=== PATIENT | male | born 1950 | race Caucasian/White ===

== ENCOUNTER 2021-01-18 07:06 | Outpatient (CLI) | payer OTHER, SELFPAY ==
--- NOTE | 2021-01-18 07:15 | USCV_ITS ---
Bienvenido Rees Age: 70 Gender: M : 1950 Exam Date: 01/18/2021 07:35 Ordering Phys: Vicki Nice MD ([email or web address]) Technologist: Theresa Jorgensen [place] [facility] [place]: CHEST PAIN BP: 132 / 78 HR: 64 Rhythm: Sinus Technical Quality: Adequate MEASUREMENTS (Male / Female) Normal Values 2D ECHO LV Diastolic Diameter PLAX 3.9 cm 4.2 - 5.9 / 3.9 - 5.3 cm LV Systolic Diameter PLAX 2.2 cm IVS Diastolic Thickness 1.5 cm 0.6 - 1.0 / 0.6 - 0.9 cm IVS Systolic Thickness 1.8 cm LVPW Diastolic Thickness 1.4 cm 0.6 - 1.0 / 0.6 - 0.9 cm LVPW Systolic Thickness 1.8 cm LVOT Diameter 2.0 cm LV Ejection Fraction 2D Teich 76.2 % LV Ejection Fraction MOD 2C 53.8 % LV Ejection Fraction 2C AL 59.2 % LA Diameter 3.6 cm LA Width 3.4 cm LA Height 5.1 cm RA Width 3.4 cm RA Height 4.6 cm Aorta at Sinotubular Diameter 2.9 cm M-MODE LV Diastolic Diameter MM 4.3 cm 4.2 - 5.9 / 3.9 - 5.3 cm LV Systolic Diameter MM 2.4 cm LV Ejection Fraction MM Teich 76.1 % IVS Diastolic Thickness MM 1.8 cm 0.6 - 1.0 / 0.6 - 0.9 cm IVS Systolic Thickness MM 1.7 cm LVPW Diastolic Thickness MM 1.6 cm 0.6 - 1.0 / 0.6 - 0.9 cm LVPW Systolic Thickness MM 1.4 cm Aortic Annulus Diameter 4.1 cm LA Ao Ratio MM 0.9 MV E Point Septal Separation 0.8 cm DOPPLER AV Peak Velocity 134.0 cm/s LVOT Peak Velocity 134.0 cm/s AV Area Cont Eq vti 2.9 cm squared AV Area Cont Eq pk 3.2 cm squared MV Area PHT 3.4 cm squared Mitral E to A Ratio 0.9 MV E' Velocity 51.8 cm/s Mitral E to MV E' Ratio 9.9 Mitral E to LV E' Lateral Ratio 8.0 Mitral E to LV E' Septal Ratio 13.3 TR Peak Velocity 285.3 cm/s TR Peak Gradient 32.6 mmHg Right Atrial Pressure 3.0 mmHg Pulmonary Artery Systolic Pressu 35.6 mmHg PV Peak Velocity 87.0 cm/s RV Acceleration Time 0.1 s RV Ejection Time 0.3 s RV AcT/ET 0.4 FINDINGS Left Ventricle Normal left ventricular size and systolic function, EF 66 %. No regional wall motion abnormalities. Mild left ventricular hypertrophy. Right Ventricle The right ventricle is normal in size and function. Right Atrium The right atrium is normal in size. Left Atrium Thickened interatrial septum Mitral Valve Trace mitral valve regurgitation. Aortic Valve Thickened aortic valve. Tricuspid Valve Trace tricuspid valve regurgitation. Pulmonic Valve Mild pulmonary valve regurgitation. Pericardium Normal pericardium without effusion. Aorta Normal ascending aorta dimension. CONCLUSIONS Normal left ventricular size and systolic function, EF 66 %. No regional wall motion abnormalities. Mild left ventricular hypertrophy. Thickened aortic and mitral valves. Trace of mitral and tricuspid regurgitation. Mild pulmonary valve regurgitation. Estimated pulmonary artery peak systolic pressure 36 mmHg. There is no pericardial effusion. There are no intracardiac masses. Dr Vicki Nice MD [facility] (Electronically Signed) Final Date: 19 January 2021 15:25 S
== END 2021-01-18 07:07 | disposition home or self-care (01) ==
LOC: US 07:07
PROVIDERS: PCP Internal Medicine; Visit Provider Internal Medicine Cardiovascular Disease
DX: R07.89 Other chest pain (principal); R06.02 Shortness of breath
CPT/HCPCS: 93306

== ENCOUNTER → 2022-03-18 13:25 | Outpatient (BNVA) | payer OTHER, SELFPAY | PROVIDERS: PCP Family Medicine; Visit Provider Internal Medicine Cardiovascular Disease | DX: R07.89 Other chest pain (principal); Z86.73 Personal history of transient ischemic attack (TIA), and cerebral infarction without residual deficits; Z86.39 Personal history of other endocrine, nutritional and metabolic disease; Z86.79 Personal history of other diseases of the circulatory system; R06.00 Dyspnea, unspecified; Z87.891 Personal history of nicotine dependence | CPT/HCPCS: 99213 ==

== ENCOUNTER → 2022-07-04 09:07 | Outpatient (BNVA) | payer OTHER, SELFPAY | PROVIDERS: PCP Family Medicine; Visit Provider Thoracic Surgery (Cardiothoracic Vascular Surgery) | DX: I71.4 Abdominal aortic aneurysm, without rupture (principal) | CPT/HCPCS: 99203 ==

== ENCOUNTER → 2022-09-30 10:47 | Outpatient (BNVA) | payer OTHER, SELFPAY | PROVIDERS: PCP Family Medicine; Visit Provider Internal Medicine Cardiovascular Disease | DX: R07.89 Other chest pain (principal); Z86.39 Personal history of other endocrine, nutritional and metabolic disease; Z86.73 Personal history of transient ischemic attack (TIA), and cerebral infarction without residual deficits; Z86.79 Personal history of other diseases of the circulatory system; I71.40 Abdominal aortic aneurysm, without rupture, unspecified; I71.21 Aneurysm of the ascending aorta, without rupture; Z87.891 Personal history of nicotine dependence | CPT/HCPCS: 99213 ==

== ENCOUNTER 2022-12-06 06:14 | Emergency (ER) | payer OTHER, SELFPAY ==
[2022-12-06 06:24] VITALS: BP 158/81; PULSE 109; RESP 18; TEMP 36.6; O2SAT 92; BMI 26.3
--- NOTE | 2022-12-06 06:55 | W.ED.GENADLT ---
HPI - General Adult General: Chief complaint: General Medical Stated complaint: Lump on chest area Time Seen by Provider: 12/06/22 06:44 Source: patient Mode of arrival: ambulatory History of Present Illness: 72-year-old male presents to the emergency room complaining of a sore area at the inferior aspect of his sternum. He has a palpable nodule there when he rubs it it becomes more tender. He has a history of abdominal aortic aneurysm that Dr. Mesa has been monitoring. No recent medication changes no chest trauma. No recent illness. He does chronically have shortness of breath and has known COPD states that minimal activity he becomes very short of breath that is becoming more and more of an issue lately for him. Severity: mild Relieving factors: none Exacerbating factors: none Associated symptoms: Reports dyspnea; Deny chest pain, confusion, cough, diaphoresis, decreased appetite, fevers/chills, headache(s), malaise, nausea, rash, palpitations, seizures, short of breath, syncope, vomiting or weakness Treatments prior to arrival: none Review of Systems Const: Denies: fever(s), chills, fatigue, malaise or diaphoresis Card: Denies: chest pain, palpitations or syncope Resp: Reports: dyspnea and wheezing; Denies: productive cough or non-productive cough GI: Denies: abdominal pain, nausea or vomiting Skin/Breast: Denies: rash Neuro: Denies: headache(s) or confusion PFS ED PFSH: Medical History Abdominal aortic aneurysm (AAA) Ascending aortic aneurysm Hearing impaired History of ataxia History of CVA (cerebrovascular accident) History of posttraumatic stress disorder (PTSD) Hx of essential hypertension Hx of mixed hyperlipidemia Hx of tinnitus Surgical History History of cataract extraction History of lumbar fusion Hx of cholecystectomy Hx of fusion of cervical spine Hx of hand surgery Family History Other Adopted Social History Smoking and tobacco status: former smoker Quit status (tobacco): has quit using tobacco Year quit tobacco: 2014 Former quit date comment: 2 1/2 PACK PER DAY X 50 YEARS Alcohol intake: former Last alcohol use date: 11/24/03 Lives independently: Yes Household members: spouse Marital status: Number of children: 7 service: Yes Pets and animals: Yes Pets & animals: dog(s) Physical Exam Const: COMMON NORMALS: no acute distress GENERAL APPEARANCE: cooperative and comfortable ORIENTATION/CONSCIOUSNESS: Yes awake, Yes oriented to person, Yes oriented to place and Yes oriented to time HENMT: COMMON NORMALS: normocephalic, atraumatic and hearing grossly normal bilaterally HEAD & SCALP: normocephalic and atraumatic Chest: OTHER: Area of concern patient refers to the base of the sternum xiphoid is prominent and palpable moderately tender no ecchymosis no crepitus Resp: COMMON NORMALS: normal respiratory effort, No retractions and No use of accessory muscles AUSCULTATION: rhonchi and wheezes Cardio: COMMON NORMALS: regular rate, regular rhythm and No murmurs present (Cardio) RATE: regular rate RHYTHM: regular rhythm GI: COMMON NORMALS: Soft to palpation and No hepatosplenomegaly present AUSCULTATION: Yes normoactive bowel sounds PALPATION: Yes Soft to palpation, No Tenderness to palpation present (GI), No Guarding due to palpation present (GI) and Yes No hepatosplenomegaly present Extremity: COMMON NORMALS: normal to inspection, capillary refill normal, no clubbing, cyanosis or edema, no calf tenderness and no pedal edema Neuro: SENSORIUM/ORIENTATION: Yes oriented to person, Yes oriented to place and Yes oriented to time Skin: COMMON NORMALS: no rashes or lesions noted GENERAL SKIN EXAM: no rashes or lesions noted Course Vital Signs: Vital signs: Vital Signs Temperature 98 F 12/06/22 06:24 Pulse Rate 80 12/06/22 07:10 Respiratory Rate 18 12/06/22 06:24 Blood Pressure 106/62 12/06/22 07:10 Pulse Oximetry 90 12/06/22 07:10 Oxygen Delivery Me thod 12/06/22 06:24 MDM - General Adult Medical Decision Making Reproducible pain in the area of concern is the xiphoid process. It is bowed ventrally likely due to his COPD. Discussed with the patient. Avoid massaging that area as that will likely increase the discomfort. Can use Tylenol or ibuprofen. His oxygen saturations are borderline and at times he will dip below 90 and remained there while at rest on room air. Offered to evaluate the patient for home supplemental oxygen he declined [facility] He was advised he can return at any time if he were to change his mind. He otherwise has no new respiratory symptoms. The had made a comment to the triage nurse that he had hypotension however his blood pressure is slightly hypertensive. He does have a known history of aortic aneurysm but is being monitored by Dr. Mesa he has no new symptoms suggestive of a dissection or worsening of his aneurysm at this time. Discharge Plan Discharge Patient Disposition: Home Clinical Impression: Xyphoidalgia Condition: Stable Prescriptions: No Action folic acid 1 mg tablet 1 mg PO DAILY pantoprazole 40 mg tablet,delayed release (DR/EC) 40 mg PO DAILY tamsulosin 0.4 mg capsule 0.4 mg PO DAILY buspirone 15 mg tablet 15 mg PO BID bupropion HCl [Wellbutrin SR] 200 mg tablet sustained-release 12 hr 200 mg PO BID duloxetine 20 mg capsule,delayed release(DR/EC) 20 mg PO BID ketoconazole 2 % cream 1 applic topical DAILY polyethylene glycol 3350 [Miralax] 17 gram/dose powder 17 g PO DAILY rosuvastatin 10 mg tablet 10 mg PO DAILY ipratropium-albuterol 20-100 mcg/actuation mist 1 puff inhalation QID Rx Instructions: space evenly during waking hours budesonide 90 mcg/actuation aerosol powdr breath activated 1 inh inhalation Q12H clopidogrel 75 mg tablet 75 mg PO DAILY finasteride 5 mg tablet 5 mg PO DAILY amlodipine 5 mg tablet 5 mg PO DAILY Qty: 90 3RF Discharge Orders: Discharge ED (Routine); Ordered 12/06/22 Ordered By: Sanya Donaldson Referrals: Umm Hyatt MD [Primary Care Provider] - Discharge Diet: Usual diet Discharge Activity: Increase activity as tolerated Patient Instructions: Opioid Safety, Pain Management Activity Restrictions/Additional Instructions: You are seen today for a prominent and tender xiphoid process. You can use ibuprofen or Tylenol. Avoid massaging the area as it can increase tenderness. Was also noted on exam your oxygen saturations are borderline. This is likely due to your COPD. Recommend that you follow-up with your doctor as soon as you are able to be evaluated for supplemental oxygen. 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
[2022-12-06 07:10] VITALS: BP 106/62; PULSE 80; O2SAT 90
== END 2022-12-06 07:10 | disposition home or self-care (01) ==
PROVIDERS: Emergency Provider Family Medicine; PCP Family Medicine
DX: M89.8X8 Other specified disorders of bone, other site (principal); Z86.73 Personal history of transient ischemic attack (TIA), and cerebral infarction without residual deficits; I10 Essential (primary) hypertension; E78.2 Mixed hyperlipidemia; Z87.891 Personal history of nicotine dependence
CPT/HCPCS: 99282

== ENCOUNTER 2023-01-09 06:58 | Outpatient (CLI) | payer OTHER, SELFPAY ==
--- NOTE | 2023-01-09 06:30 | CT_ITS ---
WS: [id number] CT ANGIOGRAPHY abdomen and pelvis. HISTORY: AAA TECHNIQUE: CT angiogram is performed during IV injection. Reformation images reviewed. All CT scans a Buzzwire Reclog use at least one of these dose optimization techniques: automated exposure contro l; mA and/or kV adjustment per patient size (includes targeted exams where dose is matched to clinica l indication); or iterative reconstruction. CONTRAST: Omnipaque 350; 100 mL IV. DLP: 626.45 mGy.cm COMPARISON: CT 03/18/2018 noncontrast. Hyperexpanded lung bases from emphysema. No pleural effusion. Heart is normal size. Small hiatal ky ia. Abdominal aorta: Maximum transverse diameter infrarenal aorta is 3.1 cm which is several centimeters below the renal arteries. Short segment aneurysmal dilatation but there is a large plaque ulceration. Contrast enhancement is lobulated extending into the LEFT lateral aortic thrombus at the level of th e aneurysm. Ulceration measures 1.0 x 1.3 cm. There is additional scattered plaque and intimal thicke dulce throughout the aorta. Small amount of calcified plaque in the celiac axis and SMA but no high-grade stenosis. Renal arterie s are both patent. MITCHELL is normal. 50% stenosis origin LEFT common iliac artery. Mild aneurysmal dilatation of the distal LEFT common il iac artery. Diameter is 1.6 cm with a small plaque ulceration versus a short focal dissection. There is additional calcified plaque in the bilateral common and external iliac arteries but no high-grade stenosis. Tricuspid regurgitation into hepatic veins. Early enhancement of the liver, spleen, pancreas and adre nal glands is negative. Gallbladder has been removed. No common bile duct dilatation. Mild cortical a trophy of each kidney. No ischemic changes. There are a few small cortical hypodensities which are to o small to characterize. No GI tract obstruction. Sigmoid diverticulosis without diverticulitis. No a denopathy or ascites. CT/CT angio abdomen pelvis [id number] IMPRESSION: 1. Small infrarenal abdominal aortic aneurysm with a maximum transverse diamet er of 3.1 cm. Contained within the short segment aneurysm is an ulceration letty uring 1.0 x 1.3 cm. 2. Additional focal aneurysm LEFT common iliac artery measures 1.6 cm with a s mall ulcerated plaque versus dissection. 3. Prior cholecystectomy.
[2023-01-09] MEDS: iohexol 350 mg/mL 500 mL Btl (per mL) IV (07:10)
[2023-01-09 07:32] LABS: Blood Urea Nitrogen 8 mg/dL (8-23)
== END 2023-01-09 06:59 | disposition home or self-care (01) ==
LOC: RAD 06:59
PROVIDERS: PCP Family Medicine; Visit Provider Thoracic Surgery (Cardiothoracic Vascular Surgery)
DX: I71.43 Infrarenal abdominal aortic aneurysm, without rupture; I72.3 Aneurysm of iliac artery; Z90.49 Acquired absence of other specified parts of digestive tract
CPT/HCPCS: 74174; 82565; 84520; Q9967

== ENCOUNTER → 2023-01-30 08:47 | Outpatient (BNVA) | payer OTHER, SELFPAY | PROVIDERS: PCP Family Medicine; Visit Provider Thoracic Surgery (Cardiothoracic Vascular Surgery) | DX: I71.40 Abdominal aortic aneurysm, without rupture, unspecified (principal); I71.21 Aneurysm of the ascending aorta, without rupture; Z87.891 Personal history of nicotine dependence | CPT/HCPCS: 99213 ==

== ENCOUNTER → 2023-04-08 10:03 | Outpatient (BNVA) | payer OTHER, SELFPAY | PROVIDERS: PCP Family Medicine; Visit Provider Internal Medicine Cardiovascular Disease | DX: E78.2 Mixed hyperlipidemia (principal); Z86.73 Personal history of transient ischemic attack (TIA), and cerebral infarction without residual deficits; I71.21 Aneurysm of the ascending aorta, without rupture; I71.40 Abdominal aortic aneurysm, without rupture, unspecified; I10 Essential (primary) hypertension; Z87.891 Personal history of nicotine dependence | CPT/HCPCS: 99214 ==

== ENCOUNTER 2023-05-19 23:09 | Emergency (ER) | payer OTHER, SELFPAY ==
[2023-05-19 23:21] VITALS: BP 133/73; PULSE 70; RESP 16; TEMP 36.6; O2SAT 94; BMI 25.7
--- NOTE | 2023-05-19 23:27 | ED_ITS ---
HPI - Extremity Problem General: Chief complaint: Extremity Injury, Lower Stated complaint: right leg pain Time Seen by Provider: 05/19/23 23:24 History of Present Illness: 72-year-old male patient comes in today for concerns of pain to the posterior right knee. Patient reports pains been off and on for the last 2 months but worse over the last day or so. Patient also reports increased size of blood vessels to the lower legs. Patient appears nontoxic. No significant swelling is noted to the extremity. Patient has a history of a abdominal aortic aneurysm, COPD, BPH, depression, GERD, Parkinson's, hypertension. Associated symptoms: Deny chest pain or rash Review of Systems General: Reports: 10 or more systems reviewed and unremarkable except in HPI and below Card: Denies: chest pain Resp: Denies: dyspnea GI: Denies: nausea, vomiting or diarrhea Musc: Reports: extremity pain (Right knee and lower leg); Denies: back pain Skin/Breast: Denies: rash PFSH ED PFSH: Medical History Abdominal aortic aneurysm (AAA) Ascending aortic aneurysm Hearing impaired History of ataxia History of CVA (cerebrovascular accident) History of posttraumatic stress disorder (PTSD) Hx of essential hypertension Hx of mixed hyperlipidemia Hx of tinnitus Surgical History History of cataract extraction History of lumbar fusion Hx of cholecystectomy Hx of fusion of cervical spine Hx of hand surgery Family History Other Adopted Social History Smoking and tobacco status: former smoker Quit status (tobacco): has quit using tobacco Year quit tobacco: 2014 Former quit date comment: 2 1/2 PACK PER DAY X 50 YEARS Alcohol intake: former Last alcohol use date: 11/24/03 Substance/Drug Use: current Lives independently: Yes Household members: spouse Marital status: Number of children: 7 service: Yes Pets and animals: Yes Pets & animals: dog(s) Physical Exam Const: COMMON NORMALS: alert HENMT: COMMON NORMALS: normocephalic HEAD & SCALP: normocephalic Neck/C-Spine: COMMON NORMALS: full ROM Resp: COMMON NORMALS: normal respiratory effort Cardio: COMMON NORMALS: regular rate RATE: regular rate Extremity: RIGHT LOWER EXTREMITY: Yes knee joint (Posterior knee discomfort) and Yes lower leg (Increased venous size) Neuro: SENSORIUM/ORIENTATION: Yes alert Skin: COMMON NORMALS: turgor normal GENERAL SKIN EXAM: turgor normal Course Vital Signs: Vital signs: Vital Signs Temperature 97.8 F 05/19/23 23:21 Pulse Rate 75 05/19/23 23:32 Respiratory Rate 16 05/19/23 23:32 Blood Pressure 120/76 05/19/23 23:32 Pulse Oximetry 92 05/19/23 23:32 Oxygen Delivery Me thod Room Air 05/19/23 23:21 MDM - Extremity (Nontraumatic) Medical Decision Making Patient came in tonight for concerns of posterior right knee pain. On exam there was no significant swelling but some tenderness in the posterior aspect of the knee. Vital signs were normal. Differential diagnosis includes not limited to DVT, Giron's cyst, osteoarthritis of the knee, meniscal injury. X-ray noted tricompartmental arthritis of the knee worse on the medial aspect. Venous duplex noted no DVT or signs of Giron's cyst. Patient left prior to results of x-ray and ultrasound without notifying staff. I called the patient's cell phone number that was left in the record and left a message with the results of the x- ray and ultrasound with recommendations to follow-up with primary care or contact the ER for further questions. Patient was stable to leave. No signs of severe distress or injury was noted. Lab Data Radiology Impressions Knee X-Ray 05/19/23 23:32 IMPRESSION: 1. Scattered vascular calcifications. 2. Mild tricompartmental osteoarthritis of the knee, greatest in the medial compartment. Venous Duplex 05/19/23 23:32 IMPRESSION: No evidence of deep vein thrombosis. Negative for Giron's cyst. Discharge Plan Discharge Condition: Stable Prescriptions: No Action folic acid 1 mg tablet 1 mg PO DAILY pantoprazole 40 mg tablet,delayed release (DR/EC) 40 mg PO DAILY tamsulosin 0.4 mg capsule 0.4 mg PO DAILY buspirone 15 mg tablet 15 mg PO BID bupropion HCl [Wellbutrin SR] 200 mg tablet sustained-release 12 hr 200 mg PO BID duloxetine 20 mg capsule,delayed release(DR/EC) 20 mg PO BID ketoconazole 2 % cream 1 applic topical DAILY rosuvastatin 10 mg tablet 10 mg PO DAILY ipratropium-albuterol 20-100 mcg/actuation mist 1 puff inhalation QID Rx Instructions: space evenly during waking hours budesonide 90 mcg/actuation aerosol powdr breath activated 1 inh inhalation Q12H clopidogrel 75 mg tablet 75 mg PO DAILY finasteride 5 mg tablet 5 mg PO DAILY amlodipine 5 mg tablet 5 mg PO DAILY Qty: 90 3RF mirtazapine [Remeron] 15 mg tablet 15 mg PO DAILY carbidopa-levodopa 25-100 mg tablet 1 tab PO TID Referrals: Umm Hyatt MD [Primary Care Provider] - Coding Level of Care Code ED 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
[2023-05-19 23:32] VITALS: BP 120/76; PULSE 75; RESP 16; O2SAT 92
--- NOTE | 2023-05-19 23:32 | XRR_ITS ---
PROCEDURE INFORMATION: Exam: XR Right Knee Exam date and time: 05/19/2023 11:36 PM Age: 72 years old Clinical indication: Pain; Knee; Right TECHNIQUE: Imaging protocol: Radiologic exam of the right knee. Views: 3 views. COMPARISON: No relevant prior studies available. FINDINGS: Bones/joints: Mild tricompartmental osteoarthritis of the knee, greatest in the medial compartment. Soft tissues: Normal. Vasculature: Scattered vascular calcifications. XR/XR knee RT 3V* [id number] IMPRESSION: 1. Scattered vascular calcifications. 2. Mild tricompartmental osteoarthritis of the knee, greatest in the medial compartment.
--- NOTE | 2023-05-19 23:32 | USR_ITS ---
PROCEDURE INFORMATION: Exam: US Duplex Right Lower Extremity Veins, Limited Exam date and time: 05/19/2023 11:47 PM Age: 72 years old Clinical indication: Pain; Leg, lower; Right; Additional info: Posterior knee pain, concern for dvt vs giron's cyst TECHNIQUE: Imaging protocol: Real-time duplex ultrasound of the right extremity with 2-D jett scale, color Doppler flow and spectral waveform analysis including responses to compression and other maneuvers (when performed) with image documentation. Limited exam was focused on the right lower extremity veins. COMPARISON: CR (LOW EXM, ) 05/19/2023 11:36 PM FINDINGS: Right deep veins: Unremarkable. The common femoral, femoral, proximal profunda femoral and popliteal veins are patent without thrombus. Normal Doppler waveforms. Normal compressibility and/or augmentation response. Right superficial veins: Unremarkable. Saphenofemoral junction is patent without thrombus. Soft tissues: Unremarkable. US/[place] [id number] IMPRESSION: No evidence of deep vein thrombosis. Negative for Giron's cyst.
--- NOTE | 2023-05-20 00:20 | PC.NURSE ---
Patient stated he wanted pulse ox off or he would leave ama. He said, the beeping is driving him crazy. NT asked if he would like to wear oxygen and he stated no, he did not want to get spoiled with O2.
== END 2023-05-20 01:17 | disposition left against medical advice (07) ==
PROVIDERS: Emergency Provider Nurse Practitioner Family; PCP Family Medicine
DX: M79.604 Pain in right leg (principal); Z79.02 Long term (current) use of antithrombotics/antiplatelets; Z86.73 Personal history of transient ischemic attack (TIA), and cerebral infarction without residual deficits; I10 Essential (primary) hypertension; E78.2 Mixed hyperlipidemia; Z87.891 Personal history of nicotine dependence
CPT/HCPCS: 73562; 93971; 99284

== ENCOUNTER → 2024-12-23 14:56 | Outpatient (BNVA) | payer OTHER, SELFPAY | PROVIDERS: PCP Family Medicine; Visit Provider Internal Medicine | DX: I48.91 Unspecified atrial fibrillation (principal); R07.89 Other chest pain; Z96.649 Presence of unspecified artificial hip joint; Z86.73 Personal history of transient ischemic attack (TIA), and cerebral infarction without residual deficits; E78.5 Hyperlipidemia, unspecified; I10 Essential (primary) hypertension | CPT/HCPCS: 99214 ==

== ENCOUNTER 2025-01-06 08:53 | Outpatient (CLI) | payer OTHER, SELFPAY ==
[2025-01-06 09:11] VITALS: BMI 29.8
--- NOTE | 2025-01-06 09:13 | ECG_ITS ---
[facility] Test Date: 2025-01-06 Pat Name: Bienvenido Rees Department: Room: Gender: Male Back Joiner: : 1950 Requested By: Dakota Hassan Order Number: [id number] Clive MD: Vicki Nice M.D. Interpretive Statements Lung unchanged pre/post procedure; Intraprocedure shortess of breath; Symptoms resoled by discharge PROCEDURE: At the baseline, the EKG revealed normal sinus rhythm with some nonspecific T wave changes. The baseline heart was 75 bpm with a blood pressue of 112/69 mm of Hg Lexiscan was infused over a period of 20 seconds. A total of 0.4 milligrams of Lexiscan was infused. The stress phase was continued for a total of 5 minutes. Heart rate at the end of the stress phase was 88 bpm with a blood pressure 114/66 mm of Hg. The EKG at the peak infusion revealed no significant changes. Sestamibi was injected 20 seconds after the Lexiscan infusion. Heart rate at the end of the recovery phase was 91 bpm with a blood pressure of 107/66 mm of Hg. CONCLUSION: 1. No significant EKG changes with the LexiScan infusion 2. No LexiScan induced chest pain or cardiac arrhythmia 3. Normal blood pressure and heart rate response 4. Sestamibi/sestamibi perfusion scan pending; see separate report. Electronically Signed On 01-10-2025 06:33:41 PROPERTY MANAGEMENT ACCOUNTANT by Vicki Nice M.D. [email or web address]
--- NOTE | 2025-01-06 09:13 | NMCV_ITS ---
NM abhijeet perf SPECT r/s* [id number] Bienvenido Rees Age: 74 Gender: M : 1950 Exam Date: 01/06/2025 09:56 Ordering Phys: Dakota Hassan M.D ([email or web address]) Technologist: STEPH Ji Exam Location: [facility] Indications: cp STRESS TEST Please [facility] for [facility] IMAGE PROTOCOL Rest/Stress 1 Lexiscan Day Radiopharmaceutical Dose (mCi) Administration Site Administered by Rest: Tc-99m 10.6 IV Wendie Oliver, GRINDER SET UP OPERATOR THREAD TOOL Sestamibi Stress:Tc-99m 32.5 IV Wendie Brargle, GRINDER SET UP OPERATOR THREAD TOOL Sestamibi Rest: 06-Jan-2025 60 Discovery 630 Stress: 06-Jan-2025 30 Discovery 630 0.4mg Lexiscan. Images obtained in supine and prone position. SPECT RESULTS Technical Quality: Good Raw Data Analysis: Normal Image Corrections: No attenuation or motion correction applied Summed Stress Score: 7 Summed Rest Score: 5 Summed Difference Score: 3 PERFUSION FINDINGS Moderate area of minimal to moderately decreased asymmetric tracer uptake, involving the basal, mid and apical inferior; mid inferolateral and apical lateral segments some reversibility was noted in the basal and mid inferior and apical lateral segments with the supine imaging. However with the prone imaging, no significant Perfusion abnormalities were noted. FUNCTIONAL RESULTS (calculated via Gated SPECT) Stress Image LV EF (%): 66 Stress EDV (mL):83 TID: 0.89 Stress ESV (mL):28 FUNCTIONAL FINDINGS: Segmental wall motion analysis revealing no gross wall motion abnormalities IMPRESSIONS 1. Myocardial perfusion imaging revealing moderate area of minimal to moderately decreased tracer uptake involving the inferior, inferolateral and apical lateral regions with some reversibility suggesting myocardial scarring with ischemia in the distribution of the right coronary artery/circumflex artery. However because of the inconsistency with the prone imaging, this could be artifactual. Clinical correlation is recommended 2. Normal LV ejection fraction of 66%. 3. LV wall motion analysis revealing no gross wall motion abnormalities. 4. Normal LV volume Compared to the study from 08/11/2019, slightly more perfusion abnormalities are noted. Dr Vicki Nice MD [facility] (Electronically Signed) Final Date: 06 January 2025 13:36 S
[2025-01-06] MEDS: regadenoson 0.4 Mg/5 ml Syringe IVP (10:42)
[2025-01-06 10:54] VITALS: BP 107/66; PULSE 91
== END 2025-01-06 08:54 | disposition home or self-care (01) ==
LOC: CDL 08:54
PROVIDERS: PCP Family Medicine; Visit Provider Internal Medicine
DX: R07.9 Chest pain, unspecified (principal); R06.02 Shortness of breath; R93.1 Abnormal findings on diagnostic imaging of heart and coronary circulation
CPT/HCPCS: 36415; 78452; 93017; 96374; A9500; J2785

== ENCOUNTER 2025-04-15 14:18 | Emergency (ER) | payer OTHER, SELFPAY ==
[2025-04-15 14:29] VITALS: BP 120/72; PULSE 72; RESP 18; TEMP 36.7; O2SAT 90; BMI 30.4
--- NOTE | 2025-04-15 14:54 | W.ED.MALEGU ---
HPI - Male Genitourinary General: Chief complaint: Urogenital-Male Stated complaint: blood in urine Time Seen by Provider: 04/15/25 14:50 History of Present Illness: 74-year-old man with a history of atrial fibrillation with chronic anticoagulation on Xarelto, AAA, chronic hypoxemic respiratory failure on 3 L nasal cannula at all times, hypertension, hyperlipidemia, history of a stroke and PTSD who presents to the emergency room with hematuria and some mild confusion. says he seemed a little bit more confused and has been having blood in his urine for couple days now. More weak with difficulty standing. He answers all questions appropriately whenever I talk to him. No known fevers. No abdominal pain. No vomiting. Related Data Home Medications ?Medication ?Instructions ?Recorded ?Confirmed folic acid 1 mg tablet 1 mg PO DAILY 05/17/20 04/15/25 pantoprazole 40 mg tablet,delayed 40 mg PO DAILY 05/17/20 04/15/25 release tamsulosin 0.4 mg capsule 0.4 mg PO QPM 05/17/20 04/15/25 buspirone 15 mg tablet 15 mg PO BID 03/28/21 04/15/25 finasteride 5 mg tablet 5 mg PO DAILY 03/28/21 04/15/25 ketoconazole 2 % topical cream 1 applic topical DAILY 03/28/21 04/15/25 mirtazapine 15 mg tablet (Remeron) 15 mg PO BEDTIME 04/08/23 04/15/25 aspirin 81 mg tablet 81 mg PO DAILY 04/15/25 04/15/25 budesonide 160 mcg-glycopyr 9 2 inh inhalation BID 04/15/25 04/15/25 mcg-formot 4.8 mcg/actuation HFA inhaler (Breztri Aerosphere) bupropion HCl 150 mg 24 hr tablet, 150 mg PO QAM 04/15/25 04/15/25 extended release clopidogrel 75 mg tablet 75 mg PO DAILY 04/15/25 04/15/25 donepezil 10 mg tablet 5 mg PO DAILY 04/15/25 04/15/25 duloxetine 60 mg capsule,delayed 60 mg PO DAILY 04/15/25 04/15/25 release sprinkle fluticasone propionate 50 2 spray intranasal DAILY 04/15/25 04/15/25 mcg/actuation nasal spray,suspension propranolol 60 mg capsule,24 60 mg PO DAILY 04/15/25 04/15/25 hr,extended release rosuvastatin 40 mg tablet 40 mg PO QPM 04/15/25 04/15/25 Previous Rx's ?Medication ?Instructions ?Recorded amlodipine 5 mg tablet 5 mg PO DAILY #90 tabs 09/25/21 nitroglycerin 0.4 mg sublingual 0.4 mg sublingual Q5M PRN chest 12/23/24 tablet pain #25 tabs rivaroxaban 20 mg tablet (Xarelto) 20 mg PO DAILY #90 tabs 12/23/24 cefdinir 300 mg capsule 300 mg PO BID 7 days #14 caps 04/15/25 Allergies Allergy/AdvReac Type Severity Reaction Status Date / Time No Known Allergies Allergy Verified 12/23/24 15:15 Review of Systems Narrative: Constitutional symptoms: Negative except as documented in HPI. Skin symptoms: Negative except as documented in HPI. Eye symptoms: Negative except as documented in HPI. ENMT symptoms: Negative except as documented in HPI. Respiratory symptoms: Negative except as documented in HPI. Cardiovascular symptoms: Negative except as documented in HPI. Gastrointestinal symptoms: Negative except as documented in HPI. Genitourinary symptoms: Negative except as documented in HPI. Musculoskeletal symptoms: Negative except as documented in HPI. Neurologic symptoms: Negative except as documented in HPI. Psychiatric symptoms: Negative except as documented in HPI. Endocrine symptoms: Negative except as documented in HPI. PFSH ED PFSH: Medical History (Updated 04/15/25 @ 18:04 by Deidre Ochoa MD) A-fib Ascending aortic aneurysm Abdominal aortic aneurysm (AAA) Hx of essential hypertension Hx of mixed hyperlipidemia History of CVA (cerebrovascular accident) History of ataxia History of posttraumatic stress disorder (PTSD) Hx of tinnitus Hearing impaired Surgical History History of lumbar fusion Hx of cholecystectomy Hx of fusion of cervical spine History of cataract extraction Hx of hand surgery Family History Other Adopted Social History Smoking and tobacco/nicotine status: former use of tobacco/nicotine Quit status (tobacco/nicotine): has quit using Year quit tobacco: 2014 Former quit date comment: 2 1/2 PACK PER DAY X 50 YEARS Alcohol intake: former Substance/Drug Use: current Lives independently: Yes Household members: spouse Marital status: Number of children: 7 service: Yes Pets and animals: Yes Pets & animals: dog(s) Physical Exam Narrative: EXAM NARRATIVE: General: Alert, no acute distress. Skin: Warm, dry. Head: Normocephalic, atraumatic. Neck: Supple, trachea midline. Eye: Extraocular movements are intact. Ears, nose, mouth and throat: mucosa moist. Cardiovascular: Regular, Normal peripheral perfusion. Respiratory: Lungs are clear to auscultation, respirations are non-labored, breath sounds are equal, Symmetrical chest wall expansion. Gastrointestinal: Soft, Nontender, Non distended Musculoskeletal: Normal ROM, no deformity. Neurological: Alert and oriented, No focal neurological deficit observed. Psychiatric: Cooperative, appropriate mood & affect. Course Vital Signs: Vital signs: Vital Signs Temperature 98.0 F 04/15/25 14:29 Pulse Rate 72 04/15/25 14:29 Respiratory Rate 18 04/15/25 14:29 Blood Pressure 120/72 04/15/25 14:29 Pulse Oximetry 90 04/15/25 14:29 Oxygen Delivery Me thod Nasal Cannula 04/15/25 14:29 Oxygen Flow Rate 3 04/15/25 14:29 MDM - Male Medical Decision Making Medical decision making: Differential diagnosis for complaint of hematuria including but not limited to and based on the above HPI, review of systems and physical exam: UTI / hemorrhagic cystitis, pyelonephritis, kidney stones, bladder cancer Orders placed to evaluate differential diagnosis based on the above differential, HPI and physical exam Lab Review: Laboratory results were reviewed and interpreted by myself the emergency room physician. No leukocytosis. No anemia. No renal failure. Urine does have blood and white cells with 2+ bacteria so this is likely secondary to urinary tract infection. I reviewed the patient's medical record. Reexamination: Patient remained stable. No increased work of breathing. No altered mental status. No focal motor deficits. Stable on his home 3 L nasal cannula. Assessment and plan: Urinary tract infection Dehydration Mild metabolic encephalopathy Hematuria ?Rocephin and 500 mL normal saline bolus in the emergency room. - Discharged home - Discussed plan with patient. Answered any questions. - Evaluation and treatment of this problem were appropriate in the emergency setting. Lab Data 04/15/25 15:02 04/15/25 15:02 Laboratory Results WBC 9.34 10^3/uL (3.29-11.43) 04/15/25 15:02 RBC 3.98 10^6/uL (3.85-5.65) 04/15/25 15:02 Hgb 11.50 g/dL (11.27-16.99) 04/15/25 15:02 Hct 37.0 % (37-53) 04/15/25 15:02 MCV 93.0 fl (82-101) 04/15/25 15:02 MCH 28.9 pg (27-33) 04/15/25 15:02 MCHC 31.1 g/dL (30-55) 04/15/25 15:02 RDW 13.0 % (12.1-15.1) 04/15/25 15:02 Plt Count 197 10^3/cmm (157-399) 04/15/25 15:02 MPV 9.2 fL (7.4-10.4) 04/15/25 15:02 Neut % (Auto) 71.3 % 04/15/25 15:02 Lymph % (Auto) 16.7 % 04/15/25 15:02 [place] % (Auto) 8.9 % 04/15/25 15:02 Eos % (Auto) 2.5 % 04/15/25 15:02 Baso % (Auto) 0.3 % 04/15/25 15:02 Neut # (Auto) 6.66 10^3/uL (1.8-7.7) 04/15/25 15:02 Lymph # (Auto) 1.6 10^3/uL (0.8-4.8) 04/15/25 15:02 [place] # (Auto) 0.8 10^3/uL (0.2-0.9) 04/15/25 15:02 Eos # (Auto) 0.2 10^3/uL (0.0-0.8) 04/15/25 15:02 Baso # (Auto) 0.0 10^3/uL (0.0-0.1) 04/15/25 15:02 Nucleated RBC % (auto) 0 % 04/15/25 15:02 Nucleated RBCs # 0.0 /100WBC 04/15/25 15:02 Sodium 140 mmol/L (136-145) 04/15/25 15:02 Potassium 3.9 mmol/L (3.5-5.1) 04/15/25 15:02 Chloride 104 mmol/L (98-107) 04/15/25 15:02 Carbon Dioxide 26 mmol/L (22-29) 04/15/25 15:02 Anion Gap 13.9 (5-19) 04/15/25 15:02 BUN 15 mg/dL (8-23) 04/15/25 15:02 Creatinine 0.8 mg/dL (0.7-1.2) 04/15/25 15:02 GFR Calculation Not Reportable 04/15/25 15:02 Glucose 110 mg/dL (65-115) 04/15/25 15:02 Calculated Osmolality 291 mOsm/kg (285-295) 04/15/25 15:02 Lactic Acid 0.8 mmol/L (0.5-2.2) 04/15/25 15:02 Calcium 8.7 mg/dL (8.5-10.5) 04/15/25 15:02 Total Bilirubin 0.4 mg/dL (0.15-1.2) 04/15/25 15:02 AST 11 U/L (0-40) 04/15/25 15:02 ALT 13 U/L (0-41) 04/15/25 15:02 Alkaline Phosphatase 86 U/L (40-130) 04/15/25 15:02 Total Protein 6.1 g/dL (6.6-8.7) L 04/15/25 15:02 Albumin 3.4 g/dL (3.5-5.2) L 04/15/25 15:02 Globulin 2.7 g/dL (1.3-4.6) 04/15/25 15:02 Urine Color Red (Yellow) A 04/15/25 17:11 Urine Appearance Cloudy (CLEAR) A 04/15/25 17:11 Urine pH TNP 04/15/25 17:11 Ur Specific [place] TNP 04/15/25 17:11 Urine Protein TNP 04/15/25 17:11 Urine Glucose (UA) TNP 04/15/25 17:11 Urine Ketones TNP 04/15/25 17:11 Urine Blood TNP 04/15/25 17:11 Urine Nitrate TNP 04/15/25 17:11 Urine Bilirubin TNP 04/15/25 17:11 Urine Urobilinogen TNP 04/15/25 17:11 Ur Leukocyte Esterase TNP 04/15/25 17:11 Urine RBC 50-80 /hpf (0-2) H 04/15/25 17:11 Urine WBC 5-10 /hpf (0-5) H 04/15/25 17:11 Ur Squamous Epith Cells 0-4 /hpf (0-5) H 04/15/25 17:11 Amorphous Sediment Not Reportable 04/15/25 17:11 Urine Bacteria 2+ /hpf (NONE) H 04/15/25 17:11 Hyaline Casts 0-4 /lpf H 04/15/25 17:11 Urine Mucus Trace /hpf 04/15/25 17:11 No radiology studies performed this visit Discharge Plan Discharge Patient Disposition: Home Clinical Impression: Urinary tract infection, Hematuria, Dehydration Condition: Stable Prescriptions: New cefdinir 300 mg capsule 300 mg PO BID 7 Days Qty: 14 0RF No Action folic acid 1 mg tablet 1 mg PO DAILY pantoprazole 40 mg tablet,delayed release (DR/EC) 40 mg PO DAILY tamsulosin 0.4 mg capsule 0.4 mg PO QPM buspirone 15 mg tablet 15 mg PO BID ketoconazole 2 % cream 1 applic topical DAILY finasteride 5 mg tablet 5 mg PO DAILY amlodipine 5 mg tablet 5 mg PO DAILY Qty: 90 3RF mirtazapine [Remeron] 15 mg tablet 15 mg PO BEDTIME Xarelto 20 mg tablet 20 mg PO DAILY Qty: 90 3RF Rx Instructions: must administer with evening meal nitroglycerin 0.4 mg tablet, sublingual 0.4 mg sublingual Q5M PRN (Reason: chest pain) Qty: 25 2RF Rx Instructions: do not exceed 3 doses per episode donepezil 10 mg Tablet 5 mg PO DAILY propranolol 60 mg Capsule,Extended Release 24 Hr 60 mg PO DAILY clopidogrel 75 mg tablet 75 mg PO DAILY aspirin [Low-Dose Aspirin] 81 mg Tablet 81 mg PO DAILY fluticasone propionate [Flonase] 50 mcg/actuation [place],Suspension 2 spray INTRANASAL DAILY Rx Instructions: administer into each nostril rosuvastatin 40 mg Tablet 40 mg PO QPM bupropion HCl 150 mg Tablet Extended Release 24 Hr 150 mg PO QAM duloxetine 60 mg Capsule, Delayed Rel Sprinkle 60 mg PO DAILY Brycetri Aerosphere 160-9-4.8 mcg/actuation Hfa Aerosol Inhaler 2 inh INHALATION BID Discharge Orders: Discharge ED (Routine); Ordered 04/15/25 Ordered By: Deidre Ochoa Referrals: Umm Hyatt MD [Primary Care Provider, Family Practice] Discharge Diet: Usual diet Discharge Activity: Increase activity as tolerated Patient Instructions: Hematuria (ED), Urinary Tract Infection in Older Adults (ED), Opioid Safety, Pain Management Activity Restrictions/Additional Instructions: Thank you for choosing [facility] for your healthcare needs today. You have been screened and evaluated and felt safe for discharge. Health conditions do change or evolve sometimes and as such it is important that you follow up with your Primary Doctor to be re checked, 3-5 days is a general good time frame for follow up. You are always welcome to return to the ED for re assessment if your symptoms are worsening or you have new concerns Print Language: Singaporean Coding Level of Care Code ED Risk Control Consultant for Yogesh Anand
[2025-04-15 15:12] LABS: Basophils % 0.3 %; Eosinophils # 0.2 10^3/uL (0.0-0.8); Eosinophils % 2.5 %; Lymphocytes # 1.6 10^3/uL (0.8-4.8); Lymphocytes % 16.7 %; Mean Corpuscular HGB Conc 31.1 g/dL (30-55); Mean Corpuscular Hemoglobin 28.9 pg (27-33); Mean Platelet Volume 9.2 fL (7.4-10.4); Monocytes # 0.8 10^3/uL (0.2-0.9); Monocytes % 8.9 %; Neutrophils # 6.66 10^3/uL (1.8-7.7); Neutrophils % 71.3 %; Nucleated Red Blood Cells % 0 %; Platelet Count 197 10^3/cmm (157-399); Red Blood Count 3.98 10^6/uL (3.85-5.65); White Blood Count 9.34 10^3/uL (3.29-11.43)
[2025-04-15 15:25] LABS: Alanine Aminotransferase 13 U/L (0-41); Albumin Level 3.4 g/dL (3.5-5.2); Alkaline Phosphatase 86 U/L (40-130); Anion Gap 13.9 (5-19); Aspartate Amino Transferase 11 U/L (0-40); Blood Urea Nitrogen 15 mg/dL (8-23); Calcium 8.7 mg/dL (8.5-10.5); Carbon Dioxide 26 mmol/L (22-29); Chloride 104 mmol/L (98-107); Creatinine Clr Calc Pharmacy 97.0901; Globulin 2.7 g/dL (1.3-4.6); Glucose 110 mg/dL (65-115); Osmolality Calculated 291 mOsm/kg (285-295); Potassium 3.9 mmol/L (3.5-5.1); Sodium 140 mmol/L (136-145); Total Bilirubin 0.4 mg/dL (0.15-1.2); Total Protein 6.1 g/dL (6.6-8.7)
[2025-04-15 15:26] LABS: Lactic Sepsis W/Reflex 0.8 mmol/L (0.5-2.2)
[2025-04-15 17:47] LABS: Urine Appearance Cloudy (CLEAR); Urine Color Red (Yellow)
[2025-04-15 17:48] LABS: Add Urine Culture? Yes; Bacteria Urine 2+ /hpf; Hyaline Casts Urine 0-4 /lpf; Mucus Urine TRACE /hpf; RBC Urine 50-80 /hpf (0-2); Squamous Epithelial Cell Urine 0-4 /hpf (0-5); UA Manual Slide Review YES; UA Slide Review UA Slide Review Perf
[2025-04-15] MEDS: cefTRIAXone 1,000 mg SDV 1000 MG IVP (18:09)
[2025-04-15] MEDS: sodium chloride 0.9% 500 ML 999 ML IV (18:09)
[2025-04-15 18:26] VITALS: BP 125/65; PULSE 69; O2SAT 93
== END 2025-04-15 18:27 | disposition home or self-care (01) ==
PROVIDERS: Emergency Provider Emergency Medicine; PCP Family Medicine
DX: N39.0 Urinary tract infection, site not specified (principal); R31.9 Hematuria, unspecified; Z79.01 Long term (current) use of anticoagulants; I48.91 Unspecified atrial fibrillation; J96.11 Chronic respiratory failure with hypoxia; E86.0 Dehydration; E78.2 Mixed hyperlipidemia; I10 Essential (primary) hypertension; Z86.73 Personal history of transient ischemic attack (TIA), and cerebral infarction without residual deficits; Z79.02 Long term (current) use of antithrombotics/antiplatelets; Z79.899 Other long term (current) drug therapy; Z79.82 Long term (current) use of aspirin; Z87.891 Personal history of nicotine dependence; Z99.81 Dependence on supplemental oxygen
CPT/HCPCS: 36415; 80053; 81001; 83605; 85025; 87040; 87077; 87086; 87186; 96374; 99284; J0696; J7040

== ENCOUNTER → 2025-07-28 13:00 | Outpatient (BNVA) | payer OTHER, SELFPAY | PROVIDERS: PCP Family Medicine; Visit Provider Internal Medicine | DX: I48.91 Unspecified atrial fibrillation (principal); Z79.01 Long term (current) use of anticoagulants; Z79.82 Long term (current) use of aspirin; R07.9 Chest pain, unspecified; Z96.649 Presence of unspecified artificial hip joint; Z86.39 Personal history of other endocrine, nutritional and metabolic disease; Z86.73 Personal history of transient ischemic attack (TIA), and cerebral infarction without residual deficits; Z86.79 Personal history of other diseases of the circulatory system; Z87.891 Personal history of nicotine dependence | CPT/HCPCS: 99214 ==

== ENCOUNTER 2025-08-25 11:43 | Emergency (ER) | payer OTHER, SELFPAY ==
[2025-08-25 11:45] VITALS: BP 136/89; PULSE 89; RESP 16; TEMP 36.8; O2SAT 92; BMI 26.4
--- OUTSIDE RECORDS SUMMARY | 2025-08-25 11:55 | XMS_ITS | Encounter Summary ---
Author Organization [facility] Address [address] [place] [address] Care Team Providers Care Casing Trimmer Name Role Phone Umm Hyatt MD Primary Care Provider Encounter Details Date Type Department Care Team (Late st Contact Info) Description 06/01/2003 Outpatient Historical [facility] Family Medicine [place] [address] [facility] [address] [place] [address] Juve Davis MD [address] [place] [address] Social History Tobacco Use Types Packs/Day Years Used Date Smoking Tobacco: Never Assessed Sex and Gender Information Value Date Recorded Sex Assigned at Male 07/23/2023 2:26 PM CDT Legal Sex Male 5:10 AM ASSESSMENT COUNSELOR Gender Identity Male 07/23/2023 2:26 PM CDT Sexual Orientation Straight 07/23/2023 2: 26 PM CDT documented as of this encounter Plan of Treatment Upcoming Encounters Date Type Department Care Team (Late st Contact Info) Description 08/09/2026 12:00 PM CDT Ancillary Procedure [facility]- [address] [place] [address] Francesco Rosario NP [address] [place] [address] 08/09/2026 1:30 PM CDT Office Visit [facility] Vascular Surgery [place] [address] [place] [address] Francesco Rosario NP [address] [place] [address] documented as of this encounter Visit Diagnoses Not on filedocumented in this encounter Additional Health Concerns Infection Onset Date Last Indicated Resolved Time R/O Respiratory 03/30/2024 03/30/2024 03/30/2024 7 :34 PM CDT documented as of this encounter Care Teams Casing Trimmer Relationship Specialty Start Date End Date Umm Hyatt MD [address] [place] [id number] PCP - General Family Practice 06/19/23 03/29/24 documented as of this encounter
--- OUTSIDE RECORDS SUMMARY | 2025-08-25 11:55 | XMS_ITS | Encounter Summary ---
Author Organization [facility] Address [address] [place] [address] Care Team Providers Care Geological E Logger Name Role Phone Umm Hyatt MD Primary Care Provider Encounter Details Date Type Department Care Team (Late st Contact Info) Description 06/23/2003 Outpatient Historical [facility] Family Medicine [place] [address] [facility] [address] [place] [address] Juve Davis MD [address] [place] [address] Social History Tobacco Use Types Packs/Day Years Used Date Smoking Tobacco: Never Assessed Sex and Gender Information Value Date Recorded Sex Assigned at Male 07/23/2023 2:26 PM CDT 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 Male 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 Gender Identity Male 07/23/2023 2:26 PM CDT Sexual Orientation Straight 07/23/2023 2: 26 PM CDT documented as of this encounter Plan of Treatment Upcoming Encounters Date Type Department Care Team (Late st Contact Info) Description 08/09/2026 12:00 PM CDT Ancillary Procedure [facility] V[facility] Lab [facility]- [address] [place] [address] Francesco Rosario NP [address] [place] [address] 08/09/2026 1:30 PM CDT Office Visit [facility] Vascular Surgery [place] [address] [place] [address] Francesco Rosario NP [address] [place] [address] documented as of this encounter Visit Diagnoses Not on filedocumented in this encounter Additional Health Concerns Infection Onset Date Last Indicated Resolved Time R/O Respiratory 03/30/2024 03/30/2024 03/30/2024 7 :34 PM CDT documented as of this encounter Care Teams Geological E Logger Relationship Specialty Start Date End Date Umm Hyatt MD [address] [place] [phone] PCP - General Family Practice 06/19/23 03/29/24 documented as of this encounter
--- OUTSIDE RECORDS SUMMARY | 2025-08-25 11:55 | XMS_ITS | Encounter Summary ---
Author Organization [facility] Address [address] [place] [address] Care Team Providers Care Subassembly Assembler Name Role Phone Umm Hyatt MD Primary Care Provider Encounter Details Date Type Department Care Team (Late st Contact Info) Description 04/19/2003 Outpatient Historical [facility] Family Medicine [place] [address] 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 ASSOCIATE Gender Identity Male 07/23/2023 2:26 PM CDT Sexual Orientation Straight 07/23/2023 2: 26 PM CDT documented as of this encounter Plan of Treatment Upcoming Encounters Date Type Department Care Team (Late st Contact Info) Description 08/09/2026 12:00 PM CDT Ancillary Procedure [facility] V[facility] Lab [facility] Vein Center- [address] [place] [address] Francesco Rosario NP [address] [place] [address] 08/09/2026 1:30 PM CDT Office Visit [facility] Vascular Surgery [place] [address] [place] [address] Francesco Rosario NP [address] [place] [address] documented as of this encounter Visit Diagnoses Not on filedocumented in this encounter Additional Health Concerns Infection Onset Date Last Indicated Resolved Time R/O Respiratory 03/30/2024 03/30/2024 03/30/2024 7 :34 PM CDT documented as of this encounter Care Teams Subassembly Assembler Relationship Specialty Start Date End Date Umm Hyatt MD [address] [place] [phone] PCP - General Family Practice 06/19/23 03/29/24 documented as of this encounter
--- OUTSIDE RECORDS SUMMARY | 2025-08-25 11:55 | XMS_ITS | Encounter Summary ---
Author Organization [facility] Address [address] [place] [address] Care Team Providers Care Mucking Machine Operator Name Role Phone Umm Hyatt MD Primary Care Provider [phone] Encounter Details Date Type Department Care Team (Late st Contact Info) Description 07/08/2003 Outpatient Historical [facility] Family Medicine [place] [address] [facility] [address] [place] [address] Juve Davis MD [address] [place] [address] Social History Tobacco Use Types Packs/Day Years Used Date Smoking Tobacco: Never Assessed Sex and Gender Information Value Date Recorded Sex Assigned at Male 07/23/2023 2:26 PM CDT 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 Gender Identity Male 07/23/2023 2:26 PM CDT Sexual Orientation Straight 07/23/2023 2: 26 PM CDT documented as of this encounter Plan of Treatment Upcoming Encounters Date Type Department Care Team (Late st Contact Info) Description 08/09/2026 12:00 PM CDT Ancillary Procedure [facility]- [address] [place] [address] Francesco Rosario NP [address] [place] [address] 08/09/2026 1:30 PM CDT Office Visit [facility] Vascular Surgery [place] [address] [place] [address] Francesco Rosario NP [address] [place] [address] documented as of this encounter Visit Diagnoses Not on filedocumented in this encounter Additional Health Concerns Infection Onset Date Last Indicated Resolved Time R/O Respiratory 03/30/2024 03/30/2024 03/30/2024 7 :34 PM CDT documented as of this encounter Care Teams Mucking Machine Operator Relationship Specialty Start Date End Date Umm Hyatt MD [address] [place] [phone] PCP - General Family Practice 06/19/23 03/29/24 documented as of this encounter
--- OUTSIDE RECORDS SUMMARY | 2025-08-25 11:55 | XMS_ITS | Encounter Summary ---
Author Organization [facility] Address [address] [place] [address] Care Team Providers Care Dry Cleaner Hand Name Role Phone Umm Hyatt MD Primary Care Provider Encounter Details Date Type Department Care Team (Late st Contact Info) Description 04/12/2003 Outpatient Historical [facility] Family Medicine [place] [address] [facility] [address] [place] [address] Juve Davis MD [address] [place] [address] Social History Tobacco Use Types Packs/Day Years Used Date Smoking Tobacco: Never Assessed Sex and Gender Information Value Date Recorded Sex Assigned at Male 07/23/2023 2:26 PM CDT Legal Sex Male 5:10 AM BUDGET AND POLICY ANALYST Gender Identity Male 07/23/2023 2:26 PM CDT Sexual Orientation Straight 07/23/2023 2: 26 PM CDT documented as of this encounter Plan of Treatment Upcoming Encounters Date Type Department Care Team (Late st Contact Info) Description 08/09/2026 12:00 PM CDT Ancillary Procedure [facility] V[facility] Lab and Vein [facility]- [address] [place] [address] Francesco Rosario NP [address] [place] [address] 08/09/2026 1:30 PM CDT Office Visit [facility] Vascular Surgery [place] [address] [place] [address] Francesco Rosario NP [address] [place] [address] documented as of this encounter Visit Diagnoses Not on filedocumented in this encounter Additional Health Concerns Infection Onset Date Last Indicated Resolved Time R/O Respiratory 03/30/2024 03/30/2024 03/30/2024 7 :34 PM CDT documented as of this encounter Care Teams Dry Cleaner Hand Relationship Specialty Start Date End Date Umm Hyatt MD [address] [place] [phone] PCP - General Family Practice 06/19/23 03/29/24 documented as of this encounter
--- OUTSIDE RECORDS SUMMARY | 2025-08-25 11:55 | XMS_ITS | Encounter Summary ---
Author Organization [facility] Address [address] [place] [address] Care Team Providers Care Wool Shearing Supervisor Name Role Phone Umm Hyatt MD Primary Care Provider Encounter Details Date Type Department Care Team (Late st Contact Info) Description 11/11/2002 Outpatient Historical [facility] Family Medicine [place] [address] [facility] [address] [place] [address] Juve Davis MD [address] [place] [address] Social History Tobacco Use Types Packs/Day Years Used Date Smoking Tobacco: Never Assessed Sex and Gender Information Value Date Recorded Sex Assigned at Male 07/23/2023 2:26 PM CDT Legal Sex Male 5:10 AM PHOTOGEOLOGIST Gender Identity Male 07/23/2023 2:26 PM CDT Sexual Orientation Straight 07/23/2023 2: 26 PM CDT documented as of this encounter Plan of Treatment Upcoming Encounters Date Type Department Care Team (Late st Contact Info) Description 08/09/2026 12:00 PM CDT Ancillary Procedure [facility] Vascular Lab [facility] Vein [facility]- [address] [place] [address] Francesco Rosario NP [address] [place] [address] 08/09/2026 1:30 PM CDT Office Visit [facility] Vascular Surgery [place] [address] [place] [address] Francesco Rosario NP [address] [place] [address] documented as of this encounter Visit Diagnoses Not on filedocumented in this encounter Additional Health Concerns Infection Onset Date Last Indicated Resolved Time R/O Respiratory 03/30/2024 03/30/2024 03/30/2024 7 :34 PM CDT documented as of this encounter Care Teams Wool Shearing Supervisor Relationship Specialty Start Date End Date Umm Hyatt MD [address] [place] [id number] PCP - General Family Practice 06/19/23 03/29/24 documented as of this encounter
--- OUTSIDE RECORDS SUMMARY | 2025-08-25 11:55 | XMS_ITS | Encounter Summary ---
Author Organization [facility] Address [address] [place] [address] Care Team Providers Care Single Needle Operator Name Role Phone Umm Hyatt MD Primary Care Provider Encounter Details Date Type Department Care Team (Late st Contact Info) Description 04/12/2003 Outpatient Historical [facility] Juve Davis MD [address] [place] [address] CALCANEAL SPUR (Primary Dx) Social History Tobacco Use Types Packs/Day Years Used Date Smoking Tobacco: Never Assessed Sex and Gender Information Value Date Recorded Sex Assigned at Male 07/23/2023 2:26 PM CDT Legal Sex Male 5:10 AM SALON SHAMPOO ASSISTANT Gender Identity Male 07/23/2023 2:26 PM CDT Sexual Orientation Straight 07/23/2023 2: 26 PM CDT documented as of this encounter Plan of Treatment Upcoming Encounters Date Type Department Care Team (Late st Contact Info) Description 08/09/2026 12:00 PM CDT Ancillary Procedure [facility]- Jagjit [address] [place] [address] Francesco Rosario NP [address] [place] [address] 08/09/2026 1:30 PM CDT Office Visit [facility] Vascular Surgery [place] [address] [place] [phone] Francesco Rosario, JAZMIN [address] [facility] [address] [place] [address] documented as of this encounter Visit Diagnoses Diagnosis Calcaneal spur- Primary documented in this encounter Additional Health Concerns Infection Onset Date Last Indicated Resolved Time R/O Respiratory 03/30/2024 03/30/2024 03/30/2024 7 :34 PM CDT documented as of this encounter Care Teams Single Needle Operator Relationship Specialty Start Date End Date Umm Hyatt MD [address] [place] [phone] PCP - General Family Practice 06/19/23 03/29/24 documented as of this encounter
--- OUTSIDE RECORDS SUMMARY | 2025-08-25 11:55 | XMS_ITS | Encounter Summary ---
Author Organization [facility] Address [address] [place] [address] Care Team Providers Care Environmental Health And Safety Manager Name Role Phone Umm Hyatt MD Primary Care Provider Encounter Details Date Type Department Care Team (Late st Contact Info) Description 01/18/2004 Outpatient Historical [facility] Family Medicine [place] [address] [facility] [address] [place] [address] Juve Davis MD [address] [place] [address] Social History Tobacco Use Types Packs/Day Years Used Date Smoking Tobacco: Never Assessed Sex and Gender Information Value Date Recorded Sex Assigned at Male 07/23/2023 2:26 PM CDT Legal Sex Male 5:10 AM PRESENTATION SPECIALIST Gender Identity Male 07/23/2023 2:26 PM CDT Sexual Orientation Straight 07/23/2023 2: 26 PM CDT documented as of this encounter Plan of Treatment Upcoming Encounters Date Type Department Care Team (Late st Contact Info) Description 08/09/2026 12:00 PM CDT Ancillary Procedure [facility]- Jagjit [address] [place] [address] Francesco Rosario NP [address] [place] [address] 08/09/2026 1:30 PM CDT Office Visit [facility] Vascular Surgery [place] [address] [place] [address] Francesco Rosario NP [address] [place] [address] documented as of this encounter Visit Diagnoses Not on filedocumented in this encounter Additional Health Concerns Infection Onset Date Last Indicated Resolved Time R/O Respiratory 03/30/2024 03/30/2024 03/30/2024 7 :34 PM CDT documented as of this encounter Care Teams Environmental Health And Safety Manager Relationship Specialty Start Date End Date Umm Hyatt MD [address] [place] [phone] PCP - General Family Practice 06/19/23 03/29/24 documented as of this encounter
--- OUTSIDE RECORDS SUMMARY | 2025-08-25 11:55 | XMS_ITS | Encounter Summary ---
Author Organization [facility] Address [address] [place] [address] Care Team Providers Care Real Estate Rep Name Role Phone Umm Hyatt MD Primary Care Provider Encounter Details Date Type Department Care Team (Late st Contact Info) Description 03/22/2003 Outpatient Historical [facility] Medicine [place] [address] [place] [address] [address] [place] [address] Feliberto Lewis MD NO ADDRESS ON FILE Social History Tobacco Use Types Packs/Day Years Used Date Smoking Tobacco: Never Assessed Sex and Gender Information Value Date Recorded Sex Assigned at Male 07/23/2023 2:26 PM CDT Legal Sex Male 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 AM 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 REHAB 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 Gender Identity Male 07/23/2023 2:26 PM CDT Sexual Orientation Straight 07/23/2023 2: 26 PM CDT documented as of this encounter Plan of Treatment Upcoming Encounters Date Type Department Care Team (Late st Contact Info) Description 08/09/2026 12:00 PM CDT Ancillary Procedure [facility]- Jagjit [address] [address] Francesco Rosario NP [address] [place] [address] 08/09/2026 1:30 PM CDT Office Visit [facility] Vascular Surgery [place] [id number] [phone] Francesco Rosario, JAZMIN [address] [place] [address] documented as of this encounter Visit Diagnoses Not on filedocumented in this encounter Additional Health Concerns Infection Onset Date Last Indicated Resolved Time R/O Respiratory 03/30/2024 03/30/2024 03/30/2024 7 :34 PM CDT documented as of this encounter Care Teams Real Estate Rep Relationship Specialty Start Date End Date Umm Hyatt MD [address] [place] [phone] PCP - General Family Practice 06/19/23 03/29/24 documented as of this encounter
--- OUTSIDE RECORDS SUMMARY | 2025-08-25 11:55 | XMS_ITS | Encounter Summary ---
Author Organization [facility] Address [address] [place] [address] Care Team Providers Care Structural Steel Erector Name Role Phone Umm Hyatt MD Primary Care Provider Encounter Details Date Type Department Care Team (Late st Contact Info) Description 06/01/2003 Outpatient Historical [facility] Family Medicine [place] [address] 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 Gender Identity Male 07/23/2023 2:26 PM CDT Sexual Orientation Straight 07/23/2023 2: 26 PM CDT documented as of this encounter Plan of Treatment Upcoming Encounters Date Type Department Care Team (Late st Contact Info) Description 08/09/2026 12:00 PM CDT Ancillary Procedure [facility]- Jagjit [address] [place] [address] Francesco Rosario NP [address] [place] [address] 08/09/2026 1:30 PM CDT Office Visit [facility] Vascular Surgery [place] [address] [place] [address] Francesco Rosario NP [address] [place] [address] documented as of this encounter Visit Diagnoses Not on filedocumented in this encounter Additional Health Concerns Infection Onset Date Last Indicated Resolved Time R/O Respiratory 03/30/2024 03/30/2024 03/30/2024 7 :34 PM CDT documented as of this encounter Care Teams Structural Steel Erector Relationship Specialty Start Date End Date Umm Hyatt MD [address] [place] [phone] PCP - General Family Practice 06/19/23 03/29/24 documented as of this encounter
--- OUTSIDE RECORDS SUMMARY | 2025-08-25 11:55 | XMS_ITS | Encounter Summary ---
Author Organization [facility] Address [address] [place] [address] Care Team Providers Care Photogravure Press Operator Name Role Phone Umm Hyatt MD Primary Care Provider Encounter Details Date Type Department Care Team (Late st Contact Info) Description 08/12/2003 Outpatient Historical [facility] Family Medicine [place] [address] [facility] [address] [place] [address] Juve Davis MD [address] [place] [address] Social History Tobacco Use Types Packs/Day Years Used Date Smoking Tobacco: Never Assessed Sex and Gender Information Value Date Recorded Sex Assigned at Male 07/23/2023 2:26 PM CDT Legal Sex Male 5:10 AM CHUCK BONER Gender Identity Male 07/23/2023 2:26 PM CDT Sexual Orientation Straight 07/23/2023 2: 26 PM CDT documented as of this encounter Plan of Treatment Upcoming Encounters Date Type Department Care Team (Late st Contact Info) Description 08/09/2026 12:00 PM CDT Ancillary Procedure [facility]- Jagjit [address] [place] [address] Francesco Rosario NP [address] [place] [address] 08/09/2026 1:30 PM CDT Office Visit [facility] Vascular Surgery [place] [address] [place] [address] Francesco Rosario NP [address] [place] [address] documented as of this encounter Visit Diagnoses Not on filedocumented in this encounter Additional Health Concerns Infection Onset Date Last Indicated Resolved Time R/O Respiratory 03/30/2024 03/30/2024 03/30/2024 7 :34 PM CDT documented as of this encounter Care Teams Photogravure Press Operator Relationship Specialty Start Date End Date Umm Hyatt MD [address] [place] [phone] PCP - General Family Practice 06/19/23 03/29/24 documented as of this encounter
--- OUTSIDE RECORDS SUMMARY | 2025-08-25 11:55 | XMS_ITS | Clinical Summary ---
Author Organization [facility] Medical Office [facility] Address [address] [place] [address] Care Team Providers Care Hollow Handle Bench Worker Name Role Phone Unavailable Primary Care Provider Unavailabl e Allergies No known active allergies Medications albuterol sulfate 90 mcg/Actuation inhaler Take 2 Puffs by inhalation every 6 hours as needed for Shortness of Breath. Active Spiriva with HandiHaler 18 mcg capsule INHALE 1 CAPSULE BY ORAL INHALATION ONCE A DAY (FOR ORAL INHALATION USING SPECIAL HANDIHALER ONLY) - DO NOT SWALLOW CAPSULES NOTE: 1 CAPSULE = 2 INHALATIONS 3 Capsule 3 3 Active Additional Information Patient taking differently: 18 mcg Inhalation DAILY, Not using, Reported on 12/20/2024 Breztri Aerosphere 160 mcg-9mcg-4.8mcg /actuation HFA aerosol inhaler Take 2 Puffs by inhalation 2 times daily. Active polyvinyl alcohol-povidon ,PF, (REFRESH CLASSIC) 1.4-0.6 % solution Administer 1 Drop in both eyes 1 time daily as needed. Uses daily 3 Active acetaminophen (TYLENOL) 325 mg tablet Take 2 Tablets (650 mg) by mouth every 6 hours as needed for Other (See Comment) (See admin instructions). 100 Tablet 4 Active rosuvastatin (CRESTOR) 10 mg tablet Take 1 Tablet (10 mg) by mouth daily. 30 Tablet 4 Active amLODIPine (NORVASC) 5 mg tablet Take 1 Tablet (5 mg) by mouth daily. 30 Tablet 4 Active aspirin (ECOTRIN EC) 81 mg Tablet, Delayed Release (E.C.) Take 1 Tablet (81 mg) by mouth 2 times daily. 60 Tablet 4 Active buPROPion HCL (WELLBUTRIN SR) 200 mg Sustained Release 12 hour tablet Take 1 Tablet (200 mg) by mouth 2 times daily. 60 Tablet 4 Active busPIRone (BUSPAR) 10 mg tablet Take 2 Tablets (20 mg) by mouth 2 times daily. Down to 1 tablet bid 120 Tablet 4 Active carbidopa-levod opa (SINEMET) 25-100 mg tablet Take 1 Tablet by mouth 3 times daily. 90 Tablet 4 Active clopidogreL (PLAVIX) 75 mg Tablet Take 1 Tablet (75 mg) by mouth daily. 30 Tablet 4 Active docusate sodium (COLACE) 100 mg capsule Take 1 Capsule (100 mg) by mouth 2 times daily. 60 Capsule 4 Active DULoxetine (CYMBALTA) 30 mg Capsule, Delayed Release(E.C.) Take 1 Capsule (30 mg) by mouth 2 times daily. 60 Capsule 4 Active finasteride (PROSCAR) 5 mg tablet Take 1 Tablet (5 mg) by mouth daily. 30 Tablet 4 Active memantine (NAMENDA) 5 mg Tablet Take 1 Tablet (5 mg) by mouth 2 times daily. 60 Tablet 4 Active oxyCODONE-aceta minophen (Percocet) 5-325 mg tabletIndicatio ns:Closed fracture of neck of left femur, initial encounter Take 1 Tablet by mouth every 4 hours as needed for Pain, Moderate. Max Daily Amount: 6 Tablets 90 Tablet 4 Active pantoprazole (PROTONIX) 40 mg Tablet, Delayed Release (E.C.) Take 1 Tablet (40 mg) by mouth daily. 30 Tablet 4 Active tamsulosin (FLOMAX) 0.4 mg capsule Take 1 Capsule (0.4 mg) by mouth daily. 30 Capsule 4 Active traZODone (DESYREL) 50 mg tablet Take 1 Tablet (50 mg) by mouth daily at bedtime. 30 Tablet 4 Active Active Problems Problem Noted Date Diagnosed Date Peripheral vertigo involving left ear 11/17/2024 Acute cystitis without hematuria 11/17/2024 Stenosis of left vertebral artery 11/17/2024 Closed fracture of neck of left femur 05/16/2024 New onset a-fib 05/16/2024 Hypotension 05/16/2024 Displaced fracture of left femoral neck 05/15/20 Marijuana use 05/15/2024 Parkinson's disease 05/15/2024 Overview (05/15/2024): dx 2022 Chronic hypoxic respiratory failure, on home oxy gen therapy 05/15/2024 Prediabetes 05/15/2024 CKD (chronic kidney disease) stage 2, GFR 60-89 ml/min 05/15/2024 Alcohol abuse 05/15/2024 Headache, unspecified 03/30/2024 Gait instability 03/30/2024 HTN (hypertension), benign 03/30/2024 H/O: CVA (cerebrovascular accident) 03/30/2024 Dementia 03/30/2024 BPH (benign prostatic hyperplasia) 03/30/2024 Anxiety 03/30/2024 AAA (abdominal aortic aneurysm) 03/30/[address] 07/23/2022 Mediastinal adenopathy 07/23/2022 Pulmonary emphysema 07/09/2021 Dyspnea 07/09/2021 COPD (chronic obstructive pulmonary disease) Tobacco use disorder 10/10/2005 Encounters Date Type Department Care Team Description 08/09/2025 External Device Data STL ABSTRACTION Provider, Abstract 08/08/2025 8:45 AM CDT Telephone Check Up [facility] Vascular Surgery [address] [phone] Francesco Rosario NP Infrarenal abdominal aortic aneurysm (AAA) without rupture (Primary Dx); Penetrating atherosclerotic ulcer of aorta 08/08/2025 Orders Only [facility] Vascular Surgery [address] [phone] Francesco Rosario NP Infrarenal abdominal aortic aneurysm (AAA) without rupture (Primary Dx); Bilateral carotid bruits 07/29/2025 11:00 AM CDT - 07/29/2025 11:59 PM CDT Hospital Encounter [facility] CT Scan [place] [address] [place] [phone] Francesco Rosario NP Discharge Disposition: Home or Self Care 07/26/2025 External Device Data STL ABSTRACTION Provider, Abstract 07/22/2025 Telephone [facility] Vascular Surgery [place] [address] [place] [address] Provider, Abstract Abstract 07/19/2025 Telephone [facility] Vascular Surgery [address] [phone] Suhas Waddell MD Needs Appointment 07/15/2025 Orders Only [facility] Vascular Surgery [address] [phone] Francesco Rosario NP Infrarenal abdominal aortic aneurysm (AAA) without rupture (Primary Dx) 06/14/2025 External Device Data STL ABSTRACTION Provider, Abstract from Last 3 Months Family History Medical History Relation Name Comments Heart Attack Brother 1 1/2 Heart Failure Father Multiple Sclerosis Mother Heart Attack Sister 1 Relation Name Status Comments Brother 1 1/2 Brother 2 1/2 Alive Father Mother Sister 1 Sister 2 1/2 sister Alive Social History Tobacco Use Types Packs/Day Years Used Date Smoking Tobacco: Former Cigarettes 2.5 50 1 965 - 2015 Smokeless Tobacco: Former Tobacco Cessation:Counseling Given: Not Answered Alcohol Use Standard Drinks/Week Comments Not Currently 0 (1 standard drink = 0.6 oz pure alcohol) h/o alcoholism; very rare now Feeling Safe Answer Date Recorded Are you in a relationship wi th someone who hurts you emotionally and/or physically? No 11/17/2024 Food Insecurity Answer Date Recorded Patient needs follow up regardin 03/25/2025 Transportation Needs Answer Date Record ed Patient needs follow up regardin 03/25/2025 Housing Stability Answer Date Recorded Social/Environmental Concerns No concerns Utility Needs Answer Date Recorded Patient needs follow up regardin 03/25/2025 Education Answer Date Recorded What is the highest level of school you have completed or the highest degree you have received? Bachelor's degree (e.g., BA, AB, BS) 03/30/2024 Sex and Gender Information Value Date Recorded Sex Assigned at Male 07/23/2023 2:26 PM CDT Legal Sex Male 5:10 AM INVESTMENT DIRECTOR Gender Identity Male 07/23/2023 2:26 PM CDT Sexual Orientation Straight 07/23/2023 2: 26 PM CDT Last Filed Vital Signs Vital Sign Reading Time Taken Comments Blood Pressure 130/72 12/20/2024 12:57 PM INVESTMENT DIRECTOR Pulse 65 12/20/2024 12:57 PM INVESTMENT DIRECTOR Temperature 36.5 C (97.7 F) 11/17/2024 7:37 AM INVESTMENT DIRECTOR Respiratory Rate 18 12/20/2024 12:57 PM INVESTMENT DIRECTOR Oxygen Saturation 94% 12/20/2024 12:57 PM INVESTMENT DIRECTOR 2L Inhaled Oxygen Concentration - - Weight 98.4 kg (217 lb) 12/20/2024 12:57 PM INVESTMENT DIRECTOR Height 180.3 cm (5' 11 ) 12/20/2024 12:57 PM INVESTMENT DIRECTOR Body Mass Index 30.27 12/20/2024 12:57 PM INVESTMENT DIRECTOR Plan of Treatment Upcoming Encounters Date Type Department Care Team (Late st Contact Info) Description 08/09/2026 12:00 PM CDT Ancillary Procedure [facility] and [facility]- [place] [id number] [place] [address] Francesco Rosario NP [address] [place] [address] 08/09/2026 1:30 PM CDT Office Visit [facility] Vascular Surgery [place] [address] [place] [address] Francesco Rosario NP [address] [place] [address] Health Maintenance Due Date Last Done Comments COLORECTAL SCREENING 1995 FIT-DNA Q 3 years 1995 Flex Sig/CT Colonography Q 5 years 1995 Lung Cancer Screening 2000 Colorectal Cancer Screening 09/02/2002 FIT/FOBT Q 1 year 09/02/2002 09/02/2001 RSV VACCINE (60+ or ) (1 - Risk 60-74 years 1-dose series) 2010 Abdominal Aortic Aneurysm (A AA) Screening 2015 INFLUENZA VACCINE (#1) 2025 08/27/2021, 2018 DTAP/TDAP/TD VACCINES (3 - T d or Tdap) 09/30/2034 09/30/2024, 02/11/2013, 06/23/2003 PNEUMOCOCCAL VACCINE 50+ YEARS Completed 0 02/15/2021, 05/28/2018, 10/14/2005 ZOSTER VACCINE Completed 11/01/2021, 08/27/2021 Medical Devices Implanted Type Area Body Mechanic Apprentice Device Identifier Shelf Expiration Date Model / Serial / Lot Clip Clip Description:abdominal clips abdomen hernia Shell Trident Ii Tritanium Cluster 5hl 702-04-56f - [id number] Implanted:Qty: 1 on 05/16/2024 by Jerry Jasmine DO at [facility] Hip Left: Hip [employer] 01/11/2029 702-04-56F / / [id number] Insert Trident X3 10 36mm 723-10-36f - [id number] Implanted:Qty: 1 on 05/16/2024 by Jerry Jasmine DO at [facility] Hip Left: Hip [employer] 03/16/2029 723-10-36F / / [id number] Head Fem V40 Biolox Delta 6570-0-136 - [id number] Implanted:Qty: 1 on 05/16/2024 by Jerry Jasmine DO at [facility] Hip Left: Hip [employer] 12/22/2028 6570-0-136 / / [id number] Screw Trident 2 6.5x30mm Lprfl Hex [id number] - [id number] Implanted:Qty: 1 on 05/16/2024 by Jerry Jasmine DO at [facility] Screw Left: Hip [employer] 01/21/2029 [id number] / / [id number] Plate Description:hardware in back screws in neck Hip Stem Standard Offset Implanted:Qty: 1 on 05/16/2024 by Jerry Jasmine DO at [facility] Left: Hip 07/13/2028 LASHANDA-70 [id number] / / [id number] Procedures Procedure Name Priority Date/Time Associated Diagnosis Comments CTA ABD PELVIS W AND/OR WO CONTRAST Routine 07/29/2025 12:31 PM CDT Infrarenal abdominal aortic aneurysm (AAA) without rupture CREATININE Stat 07/29/2025 11:27 AM CDT from Last 3 Months Results * CTA ABD PELVIS W AND/OR WO CONTRAST (07/29/2025 12:31 PM CDT) Anatomical Region Laterality Modality Abdomen Computed Tomogra phy 07/29/2025 12:0 8 PM CDT Impressions 07/29/2025 12:57 PM CDT IMPRESSION: 1. Penetrating atheromatous ulcer of the infrarenal abdominal aorta is not significantly changed. 2. Small penetrating atheromatous ulcer in the left common iliac artery. 3. Moderate left common iliac and external iliac artery stenoses. Narrative 07/29/2025 12:57 PM CDT EXAM: CT angiogram of the abdomen and pelvis without and with IV contrast. Contrast: IOPAMIDOL 61 % INTRAVENOUS SOLUTION (SINGLE USE VIAL) Given:95 mL 3-D image sequences were also performed and generated on an independent workstation for evaluation of the peripheral vasculature. One or more of the following dose reduction techniques were utilized: automated exposure control[AEC], adjustment of mA and/or KV according to patient size, use of iterative reconstruction technique, CT scan done according to ALARA or ALARA image gently. HISTORY: Aortic aneurysm (AAA), surveillance COMPARISON: CT scan dated 12/22/2024 FINDINGS: Penetrating atheromatous ulcer in the infrarenal abdominal aorta with a maximal aortic caliber of 3.2 cm at the level of the penetrating atheromatous ulcer. This is not significantly changed since 12/22/2024. Mild stenosis at of the celiac artery at its origin. Mild stenosis at the origin of the right renal artery. Moderate common iliac artery stenoses. Distal left common iliac artery penetrating atheromatous ulcer with a maximal diameter of 1.4 cm at the level of the penetrating atheromatous ulcer. Moderate focal left external iliac artery stenosis. Mild right common and external iliac artery stenoses. Left total hip arthroplasty. Small right renal cyst. Cholecystectomy. Colonic diverticulosis. Left inguinal hernia repair changes. Mild scarring or fibrotic changes in the lower lungs bilaterally. Negative appendix. No free fluid in the abdomen or pelvis. No free intraperitoneal air. No dilated or thickened loops of small bowel or colon. No obstructing renal, ureteral or bladder calculi or hydronephrosis. Liver, kidneys, spleen, pancreas and adrenal glands are negative other than listed above. No lymphadenopathy in the abdomen or pelvis. Remainder unremarkable. Procedure Note Vadim Mcclain MD - 07/29/2025 EXAM: CT angiogram of the abdomen and pelvis without and with IV contrast. Contrast: IOPAMIDOL 61 % INTRAVENOUS SOLUTION (SINGLE USE VIAL) Given:95 mL 3-D image sequences were also performed and generated on an independent workstation for evaluation of the peripheral vasculature. One or more of the following dose reduction techniques were utilized: automated exposure control[AEC], adjustment of mA and/or KV according to patient size, use of iterative reconstruction technique, CT scan done according to ALARA or ALARA image gently. HISTORY: Aortic aneurysm (AAA), surveillance COMPARISON: CT scan dated 12/22/2024 FINDINGS: Penetrating atheromatous ulcer in the infrarenal abdominal aorta with a maximal aortic caliber of 3.2 cm at the level of the penetrating atheromatous ulcer. This is not significantly changed since 12/22/2024. Mild stenosis at of the celiac artery at its origin. Mild stenosis at the origin of the right renal artery. Moderate common iliac artery stenoses. Distal left common iliac artery penetrating atheromatous ulcer with a maximal diameter of 1.4 cm at the level of the penetrating atheromatous ulcer. Moderate focal left external iliac artery stenosis. Mild right common and external iliac artery stenoses. Left total hip arthroplasty. Small right renal cyst. Cholecystectomy. Colonic diverticulosis. Left inguinal hernia repair changes. Mild scarring or fibrotic changes in the lower lungs bilaterally. Negative appendix. No free fluid in the abdomen or pelvis. No free intraperitoneal air. No dilated or thickened loops of small bowel or colon. No obstructing renal, ureteral or bladder calculi or hydronephrosis. Liver, kidneys, spleen, pancreas and adrenal glands are negative other than listed above. No lymphadenopathy in the abdomen or pelvis. Remainder unremarkable. IMPRESSION: 1. Penetrating atheromatous ulcer of the infrarenal abdominal aorta is not significantly changed. 2. Small penetrating atheromatous ulcer in the left common iliac artery. 3. Moderate left common iliac and external iliac artery stenoses. Francesco Rosario NP CT ORDERABLES Final Result * CREATININE (07/29/2025 11:27 AM CDT) CREATININE 1.07 0.67 - 1.17 mg/dL 07/29/2025 12:07 PM CDT [facility] Comment:The GFR result is no t clinically significant on patients <18 or >70 years of age. GFR >60 mL/min/1.7 3 sq meter 07/29/2025 12:07 PM CDT [facility] Comment:eGFR calculated with 2020 CKD-EPI equation. Vegetarian diet, extremely high or low muscle mass, and may affect results. Cystatin C with Glomerular Filtration Rate is a suitable alternative for these patients. Blood Venipuncture / Unknown 07/29/2025 11:27 AM CDT 07/29/2025 11:29 AM CDT Francesco Rosario NP CHEMISTRY ORDERABLES Final Resu lt [facility] CLIA # [id number] [address] [place] [id number] from Last 3 Months Insurance MEDICARE PART A AND B [facility] OFFICE OF COMMUNITY CARE [facility] [employer] Advance Directives For more information, please contact: [phone] * Full Code (Latest Code Status on File) Date Activated Date Inactivated Comments 05/18/2024 8:04 PM 05/26/2024 2:10 PM * Full Code Date Activated Date Inactivated Comments 05/16/2024 1:02 PM 05/18/2024 6:42 PM * Full Code Date Activated Date Inactivated Comments 05/15/2024 3:53 PM 05/16/2024 1:02 PM * NO CPR (In Event of Cardiopulmonary Arrest) Date Activated Date Inactivated Comments 03/30/2024 8:31 PM 03/31/2024 12:47 AM Question Answer Comments Mechanical Ventilation (for respiratory distress) - Invasive (i.e. intubation): No Mechanical Ventilation (for respiratory distress) - Non-Invasive (i.e. BiPAP, CPAP): Yes * Full Code Date Activated Date Inactivated Comments 07/31/2022 11:58 AM 07/31/2022 5:14 PM
--- OUTSIDE RECORDS SUMMARY | 2025-08-25 11:55 | XMS_ITS | Encounter Summary ---
Author Organization [facility] Address 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 Gender Identity Male 07/23/2023 2:26 PM CDT Sexual Orientation Straight 07/23/2023 2: 26 PM CDT documented as of this encounter Plan of Treatment Upcoming Encounters Date Type Department Care Team (Late st Contact Info) Description 08/09/2026 12:00 PM CDT Ancillary Procedure [facility] Vascular Lab and Vein [facility]- [place] [address] [place] [address] Francesco Rosario NP [address] [place] [address] 08/09/2026 1:30 PM CDT Office Visit [facility] Vascular Surgery [place] [address] [place] [address] Francesco Rosario, JAZMIN [address] [place] [address] documented as of this encounter Visit Diagnoses Diagnosis 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
--- OUTSIDE RECORDS SUMMARY | 2025-08-25 11:55 | XMS_ITS | Encounter Summary ---
Author Organization [facility] Address [address] [place] [address] Care Team Providers Care Scrap Picker Name Role Phone Umm Hyatt MD Primary Care Provider Encounter Details Date Type Department Care Team (Late st Contact Info) Description 10/05/2002 Outpatient Historical [facility] Family Medicine [place] [address] [facility] [address] [place] [address] Juve Davis MD [address] [place] [address] Social History Tobacco Use Types Packs/Day Years Used Date Smoking Tobacco: Never Assessed Sex and Gender Information Value Date Recorded Sex Assigned at Male 07/23/2023 2:26 PM CDT 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 Gender Identity Male 07/23/2023 2:26 PM CDT Sexual Orientation Straight 07/23/2023 2: 26 PM CDT documented as of this encounter Plan of Treatment Upcoming Encounters Date Type Department Care Team (Late st Contact Info) Description 08/09/2026 12:00 PM CDT Ancillary Procedure [facility] Vascular Lab and Vein [facility]- [place] [address] [place] [address] Francesco Rosario NP [address] [place] [address] 08/09/2026 1:30 PM CDT Office Visit [facility] Vascular Surgery [place] [address] [place] [address] Francesco Rosario NP [address] [place] [address] documented as of this encounter Visit Diagnoses Not on filedocumented in this encounter Additional Health Concerns Infection Onset Date Last Indicated Resolved Time R/O Respiratory 03/30/2024 03/30/2024 03/30/2024 7 :34 PM CDT documented as of this encounter Care Teams Scrap Picker Relationship Specialty Start Date End Date Umm Hyatt MD [address] [place] [phone] PCP - General Family Practice 06/19/23 03/29/24 documented as of this encounter
--- OUTSIDE RECORDS SUMMARY | 2025-08-25 11:55 | XMS_ITS | Encounter Summary ---
Author Organization [facility] Address 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 Male 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 Gender Identity Male 07/23/2023 2:26 PM CDT Sexual Orientation Straight 07/23/2023 2: 26 PM CDT documented as of this encounter Plan of Treatment Upcoming Encounters Date Type Department Care Team (Late st Contact Info) Description 08/09/2026 12:00 PM CDT Ancillary Procedure [facility] Vascular Lab and Vein Center- [place] [address] [place] [address] Francesco Rosario NP [address] [place] [address] 08/09/2026 1:30 PM CDT Office Visit [facility] Vascular Surgery [place] [address] [place] [address] Francesco Rosario NP [address] [place] [address] documented as of this encounter Visit Diagnoses Not on filedocumented in this encounter Additional Health Concerns Infection Onset Date Last Indicated Resolved Time R/O Respiratory 03/30/2024 03/30/2024 03/30/2024 7 :34 PM CDT documented as of this encounter Care Teams Cda Teacher Relationship Specialty Start Date End Date Umm Hyatt MD [address] [place] [phone] PCP - General Family Practice 06/19/23 03/29/24 documented as of this encounter
--- OUTSIDE RECORDS SUMMARY | 2025-08-25 11:55 | XMS_ITS | Encounter Summary ---
Author Organization [facility] Address [address] [place] [address] Care Team Providers Care Poultry Hatchery Laborer Name Role Phone Umm Hyatt MD Primary Care Provider Encounter Details Date Type Department Care Team (Late st Contact Info) Description 06/27/2004 Outpatient Historical [facility] Family Medicine [place] [address] [facility] [address] [place] [address] Juve Davis MD [address] [place] [address] Social History Tobacco Use Types Packs/Day Years Used Date Smoking Tobacco: Never Assessed Sex and Gender Information Value Date Recorded Sex Assigned at Male 07/23/2023 2:26 PM CDT 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 Gender Identity Male 07/23/2023 2:26 PM CDT Sexual Orientation Straight 07/23/2023 2: 26 PM CDT documented as of this encounter Plan of Treatment Upcoming Encounters Date Type Department Care Team (Late st Contact Info) Description 08/09/2026 12:00 PM CDT Ancillary Procedure [facility] V[facility] Lab and Vein Center- [address]it [address] [place] [address] Francesco Rosario NP [address] [place] [address] 08/09/2026 1:30 PM CDT Office Visit [facility] Vascular Surgery [place] [address] [place] [address] Francesco Rosario NP [address] [place] [address] documented as of this encounter Visit Diagnoses Not on filedocumented in this encounter Additional Health Concerns Infection Onset Date Last Indicated Resolved Time R/O Respiratory 03/30/2024 03/30/2024 03/30/2024 7 :34 PM CDT documented as of this encounter Care Teams Poultry Hatchery Laborer Relationship Specialty Start Date End Date Umm Hyatt MD [address] [place] [phone] PCP - General Family Practice 06/19/23 03/29/24 documented as of this encounter
--- OUTSIDE RECORDS SUMMARY | 2025-08-25 11:55 | XMS_ITS | Encounter Summary ---
Author Organization [facility] Address [address] [place] [address] Care Team Providers Care Mold Hoister Name Role Phone Umm Hyatt MD Primary Care Provider Encounter Details Date Type Department Care Team (Late st Contact Info) Description 09/28/2002 Outpatient Historical [facility] Family Medicine [place] [address] [facility] [address] [place] [address] Juve Davis MD [address] [place] [address] Social History Tobacco Use Types Packs/Day Years Used Date Smoking Tobacco: Never Assessed Sex and Gender Information Value Date Recorded Sex Assigned at Male 07/23/2023 2:26 PM CDT 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 Gender Identity Male 07/23/2023 2:26 PM CDT Sexual Orientation Straight 07/23/2023 2: 26 PM CDT documented as of this encounter Plan of Treatment Upcoming Encounters Date Type Department Care Team (Late st Contact Info) Description 08/09/2026 12:00 PM CDT Ancillary Procedure [facility] V[facility] Lab [facility]- [address]jit [address] [place] [address] Francesco Rosario NP [address] [place] [address] 08/09/2026 1:30 PM CDT Office Visit [facility] Vascular Surgery [place] [address] [place] [address] Francesco Rosario NP [address] [place] [address] documented as of this encounter Visit Diagnoses Not on filedocumented in this encounter Additional Health Concerns Infection Onset Date Last Indicated Resolved Time R/O Respiratory 03/30/2024 03/30/2024 03/30/2024 7 :34 PM CDT documented as of this encounter Care Teams Mold Hoister Relationship Specialty Start Date End Date Umm Hyatt MD [address] [place] [phone] PCP - General Family Practice 06/19/23 03/29/24 documented as of this encounter
--- OUTSIDE RECORDS SUMMARY | 2025-08-25 11:55 | XMS_ITS | Encounter Summary ---
Author Organization [facility] Address [address] [place] [address] Care Team Providers Care Stem Roller Name Role Phone Umm Hyatt MD Primary Care Provider Encounter Details Date Type Department Care Team (Late st Contact Info) Description 02/21/2003 Outpatient Historical [facility] Family Medicine [place] [address] [facility] [address] [place] [address] Juve Davis MD [address] [place] [address] Social History Tobacco Use Types Packs/Day Years Used Date Smoking Tobacco: Never Assessed Sex and Gender Information Value Date Recorded Sex Assigned at Male 07/23/2023 2:26 PM CDT Legal Sex Male 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 Gender Identity Male 07/23/2023 2:26 PM CDT Sexual Orientation Straight 07/23/2023 2: 26 PM CDT documented as of this encounter Plan of Treatment Upcoming Encounters Date Type Department Care Team (Late st Contact Info) Description 08/09/2026 12:00 PM CDT Ancillary Procedure [facility] Vascular Lab and Vein Center- [address] [place] [address] Francesco Rosario NP [address] [place] [address] 08/09/2026 1:30 PM CDT Office Visit [facility] Vascular Surgery [place] [address] [place] [address] Francesco Rosario NP [address] [place] [address] documented as of this encounter Visit Diagnoses Not on filedocumented in this encounter Additional Health Concerns Infection Onset Date Last Indicated Resolved Time R/O Respiratory 03/30/2024 03/30/2024 03/30/2024 7 :34 PM CDT documented as of this encounter Care Teams Stem Roller Relationship Specialty Start Date End Date Umm Hyatt MD [address] [place] [phone] PCP - General Family Practice 06/19/23 03/29/24 documented as of this encounter
--- OUTSIDE RECORDS SUMMARY | 2025-08-25 11:55 | XMS_ITS | Encounter Summary ---
Author Organization [facility] Address [address] [place] [address] Care Team Providers Care Business Line Controller Name Role Phone Umm Hyatt MD Primary Care Provider Encounter Details Date Type Department Care Team (Late st Contact Info) Description 10/06/2003 Outpatient Historical [facility] Family Medicine [place] [address] [facility] [address] [place] [address] Juve Davis MD [address] [place] [address] Social History Tobacco Use Types Packs/Day Years Used Date Smoking Tobacco: Never Assessed Sex and Gender Information Value Date Recorded Sex Assigned at Male 07/23/2023 2:26 PM CDT Legal Sex Male 5:10 AM 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 MECHANIC APPRENTICE Gender Identity Male 07/23/2023 2:26 PM CDT Sexual Orientation Straight 07/23/2023 2: 26 PM CDT documented as of this encounter Plan of Treatment Upcoming Encounters Date Type Department Care Team (Late st Contact Info) Description 08/09/2026 12:00 PM CDT Ancillary Procedure [facility] Vascular Lab and Vein Center- [address]it [address] [place] [address] Francesco Rosario NP [address] [place] [address] 08/09/2026 1:30 PM CDT Office Visit [facility] Vascular Surgery [place] [address] [place] [address] Francesco Rosario NP [address] [place] [address] documented as of this encounter Visit Diagnoses Not on filedocumented in this encounter Additional Health Concerns Infection Onset Date Last Indicated Resolved Time R/O Respiratory 03/30/2024 03/30/2024 03/30/2024 7 :34 PM CDT documented as of this encounter Care Teams Business Line Controller Relationship Specialty Start Date End Date Umm Hyatt MD [address] [place] [phone] PCP - General Family Practice 06/19/23 03/29/24 documented as of this encounter
--- OUTSIDE RECORDS SUMMARY | 2025-08-25 11:56 | XMS_ITS | Encounter Summary ---
Author Organization [facility] Address [address] [place] [address] Care Team Providers Care Feed Mill Tender Name Role Phone Umm Hyatt MD Primary Care Provider [phone] Encounter Details Date Type Department Care Team (Late st Contact Info) Description 12/16/2002 Outpatient Historical [facility] Family Medicine [place] [address] [facility] [address] [place] [address] Juve Davis MD [address] [place] [address] Social History Tobacco Use Types Packs/Day Years Used Date Smoking Tobacco: Never Assessed Sex and Gender Information Value Date Recorded Sex Assigned at Male 07/23/2023 2:26 PM CDT Legal Sex Male 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 Gender Identity Male 07/23/2023 2:26 PM CDT Sexual Orientation Straight 07/23/2023 2: 26 PM CDT documented as of this encounter Plan of Treatment Upcoming Encounters Date Type Department Care Team (Late st Contact Info) Description 08/09/2026 12:00 PM CDT Ancillary Procedure [facility] Vascular Lab and Vein Center- [address] [place] [address] Francesco Rosario NP [address] [place] [address] 08/09/2026 1:30 PM CDT Office Visit [facility] Vascular Surgery [place] [address] [place] [address] Francesco Rosario NP [address] [place] [address] documented as of this encounter Visit Diagnoses Not on filedocumented in this encounter Additional Health Concerns Infection Onset Date Last Indicated Resolved Time R/O Respiratory 03/30/2024 03/30/2024 03/30/2024 7 :34 PM CDT documented as of this encounter Care Teams Feed Mill Tender Relationship Specialty Start Date End Date Umm Hyatt MD [address] [place] [phone] PCP - General Family Practice 06/19/23 03/29/24 documented as of this encounter
--- OUTSIDE RECORDS SUMMARY | 2025-08-25 11:56 | XMS_ITS | Encounter Summary ---
Author Organization [facility] Address [address] [place] [address] Care Team Providers Care Manager Of Tax Name Role Phone Umm Hyatt MD Primary Care Provider Encounter Details Date Type Department Care Team (Late st Contact Info) Description 09/03/2001 Outpatient Historical [facility] Family Medicine [place] [address] 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 Gender Identity Male 07/23/2023 2:26 PM CDT Sexual Orientation Straight 07/23/2023 2: 26 PM CDT documented as of this encounter Plan of Treatment Upcoming Encounters Date Type Department Care Team (Late st Contact Info) Description 08/09/2026 12:00 PM CDT Ancillary Procedure [facility] Vascular Lab and Vein Center- Jagjit [address] [place] [address] Francesco Rosario NP [address] [place] [address] 08/09/2026 1:30 PM CDT Office Visit [facility] Vascular Surgery [place] [address] [place] [address] Francesco Rosario NP [address] [place] [address] documented as of this encounter Visit Diagnoses Not on filedocumented in this encounter Additional Health Concerns Infection Onset Date Last Indicated Resolved Time R/O Respiratory 03/30/2024 03/30/2024 03/30/2024 7 :34 PM CDT documented as of this encounter Care Teams Manager Of Tax Relationship Specialty Start Date End Date Umm Hyatt MD [address] [place] [phone] PCP - General Family Practice 06/19/23 03/29/24 documented as of this encounter
--- OUTSIDE RECORDS SUMMARY | 2025-08-25 11:56 | XMS_ITS | Encounter Summary ---
Author Organization [facility] Address 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 Gender Identity Male 07/23/2023 2:26 PM CDT Sexual Orientation Straight 07/23/2023 2: 26 PM CDT documented as of this encounter Plan of Treatment Upcoming Encounters Date Type Department Care Team (Late st Contact Info) Description 08/09/2026 12:00 PM CDT Ancillary Procedure [facility] V[facility] Lab and Vein [facility]- [place] [address] [place] [address] Francesco Rosario NP [address] [place] [address] 08/09/2026 1:30 PM CDT Office Visit [facility] Vascular Surgery [place] [address] [place] [address] Francesco Rosario NP [address] [place] [address] documented as of this encounter Visit Diagnoses Not on filedocumented in this encounter Additional Health Concerns Infection Onset Date Last Indicated Resolved Time R/O Respiratory 03/30/2024 03/30/2024 03/30/2024 7 :34 PM CDT documented as of this encounter Care Teams Barber Apprentice Relationship Specialty Start Date End Date Umm Hyatt MD [address] [place] [address] PCP - General Family Practice 06/19/23 03/29/24 documented as of this encounter
--- OUTSIDE RECORDS SUMMARY | 2025-08-25 11:56 | XMS_ITS | Encounter Summary ---
Author Organization [facility] Address 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 Gender Identity Male 07/23/2023 2:26 PM CDT Sexual Orientation Straight 07/23/2023 2: 26 PM CDT documented as of this encounter Plan of Treatment Upcoming Encounters Date Type Department Care Team (Late st Contact Info) Description 08/09/2026 12:00 PM CDT Ancillary Procedure [facility] [address] [place] [address] Francesco Rosario NP [address] [place] [address] 08/09/2026 1:30 PM CDT Office Visit [facility] Vascular Surgery [place] [address] [place] [address] Francesco Rosario NP [address] [facility] [address] [place] [address] documented as of this encounter Visit Diagnoses Diagnosis Depressive disorder, not elsewhere classified- Primary documented in this encounter Additional Health Concerns Infection Onset Date Last Indicated Resolved Time R/O Respiratory 03/30/2024 03/30/2024 03/30/2024 7 :34 PM CDT documented as of this encounter Care Teams Business Database Analyst Relationship Specialty Start Date End Date Umm Hyatt MD [address] [place] [address] PCP - General Family Practice 06/19/23 03/29/24 documented as of this encounter
--- OUTSIDE RECORDS SUMMARY | 2025-08-25 11:56 | XMS_ITS | Encounter Summary ---
Author Organization [facility] Address [address] [place] [address] Care Team Providers Care Tire Spotter Name Role Phone Umm Hyatt MD Primary Care Provider [phone] Encounter Details Date Type Department Care Team (Latest Contact Info) Description 02/20/1999 Outpatient Historical [facility] Laurent Lloyd MD [address] [place] [address] Inguinal hernia without mention of obstruction or gangrene, unilateral or unspecified, (not specified as recurrent) (Primary Dx) Social History Tobacco Use Types Packs/Day Years Used Date Smoking Tobacco: Never Assessed Sex and Gender Information Value Date Recorded Sex Assigned at Male 07/23/2023 2:26 PM CDT Legal Sex Male 5:10 AM CABIN CLEANING 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 Gender Identity Male 07/23/2023 2:26 PM CDT Sexual Orientation Straight 07/23/2023 2: 26 PM CDT documented as of this encounter Plan of Treatment Upcoming Encounters Date Type Department Care Team (Late st Contact Info) Description 08/09/2026 12:00 PM CDT Ancillary Procedure [facility] Vascular Lab and Vein Center- [address]jit [address] [place] [address] Francesco Rosario NP [address] [place] [address] 08/09/2026 1:30 PM CDT Office Visit [facility] Vascular Surgery [place] [address] [place] [address] Francesco Rosario NP [address] [place] [address] documented as of this encounter Visit Diagnoses Diagnosis Inguinal hernia without mention of obstruction or gangrene, unilateral or unspecified, (not specified as recurrent)- Primary documented in this encounter Additional Health Concerns Infection Onset Date Last Indicated Resolved Time R/O Respiratory 03/30/2024 03/30/2024 03/30/2024 7 :34 PM CDT documented as of this encounter Care Teams Tire Spotter Relationship Specialty Start Date End Date Umm Hyatt MD [address] [place] [phone] PCP - General Family Practice 06/19/23 03/29/24 documented as of this encounter
--- OUTSIDE RECORDS SUMMARY | 2025-08-25 11:56 | XMS_ITS | Encounter Summary ---
Author Organization [facility] Address 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 Sex Male 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 OPERATOR Gender Identity Male 07/23/2023 2:26 PM CDT Sexual Orientation Straight 07/23/2023 2: 26 PM CDT documented as of this encounter Plan of Treatment Upcoming Encounters Date Type Department Care Team (Late st Contact Info) Description 08/09/2026 12:00 PM CDT Ancillary Procedure [facility] Vascular Lab and Vein Center- [place] [address] [place] [address] Francesco Rosario NP [address] [place] [address] 08/09/2026 1:30 PM CDT Office Visit [facility] Vascular Surgery [place] [address] [place] [address] Francesco Rosario NP [address] [place] [address] documented as of this encounter Visit Diagnoses Not on filedocumented in this encounter Additional Health Concerns Infection Onset Date Last Indicated Resolved Time R/O Respiratory 03/30/2024 03/30/2024 03/30/2024 7 :34 PM CDT documented as of this encounter Care Teams Manager Games Relationship Specialty Start Date End Date Umm Hyatt MD [address] [place] [phone] PCP - General Family Practice 06/19/23 03/29/24 documented as of this encounter
--- OUTSIDE RECORDS SUMMARY | 2025-08-25 11:56 | XMS_ITS | Encounter Summary ---
Author Organization [facility] Address 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 Gender Identity Male 07/23/2023 2:26 PM CDT Sexual Orientation Straight 07/23/2023 2: 26 PM CDT documented as of this encounter Plan of Treatment Upcoming Encounters Date Type Department Care Team (Late st Contact Info) Description 08/09/2026 12:00 PM CDT Ancillary Procedure [facility] Vascular Lab and Vein Center- [place] [address] [place] [address] Francesco Rosario NP [address] [place] [address] 08/09/2026 1:30 PM CDT Office Visit [facility] Vascular Surgery [place] [address] [place] [address] Francesco Rosario NP [address] [place] [address] documented as of this encounter Visit Diagnoses Diagnosis Major depressive disorder, recurrent episode, unspecified- Primary documented in this encounter Additional Health Concerns Infection Onset Date Last Indicated Resolved Time R/O Respiratory 03/30/2024 03/30/2024 03/30/2024 7 :34 PM CDT documented as of this encounter Care Teams Commonwealth Attorney Relationship Specialty Start Date End Date Umm Hyatt MD [address] [place] [address] PCP - General Family Practice 06/19/23 03/29/24 documented as of this encounter
--- OUTSIDE RECORDS SUMMARY | 2025-08-25 11:56 | XMS_ITS | Encounter Summary ---
Author Organization [facility] Address [address] [place] [address] Care Team Providers Care Amusement Park Worker Name Role Phone Umm Hyatt MD Primary Care Provider Encounter Details Date Type Department Care Team (Late st Contact Info) Description 06/09/2002 Outpatient Historical [facility] Family Medicine [place] [address] 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 Gender Identity Male 07/23/2023 2:26 PM CDT Sexual Orientation Straight 07/23/2023 2: 26 PM CDT documented as of this encounter Plan of Treatment Upcoming Encounters Date Type Department Care Team (Late st Contact Info) Description 08/09/2026 12:00 PM CDT Ancillary Procedure [facility] Vascular Lab and Vein Center- [place] [address] [place] [address] Francesco Rosario NP [address] [place] [address] 08/09/2026 1:30 PM CDT Office Visit [facility] Vascular Surgery [place] [address] [place] [address] Francesco Rosario NP [address] [place] [address] documented as of this encounter Visit Diagnoses Not on filedocumented in this encounter Additional Health Concerns Infection Onset Date Last Indicated Resolved Time R/O Respiratory 03/30/2024 03/30/2024 03/30/2024 7 :34 PM CDT documented as of this encounter Care Teams Amusement Park Worker Relationship Specialty Start Date End Date Umm Hyatt MD [address] [place] [phone] PCP - General Family Practice 06/19/23 03/29/24 documented as of this encounter
--- OUTSIDE RECORDS SUMMARY | 2025-08-25 11:56 | XMS_ITS | Encounter Summary ---
Author Organization [facility] Address [address] [place] [address] Care Team Providers Care Casino Attendant Name Role Phone Umm Hyatt MD Primary Care Provider Encounter Details Date Type Department Care Team (Late st Contact Info) Description 07/05/2005 Outpatient Historical [facility] Services Cardiac 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 Gender Identity Male 07/23/2023 2:26 PM CDT Sexual Orientation Straight 07/23/2023 2: 26 PM CDT documented as of this encounter Plan of Treatment Upcoming Encounters Date Type Department Care Team (Late st Contact Info) Description 08/09/2026 12:00 PM CDT Ancillary Procedure [facility] Vascular Lab and Vein Center- [place] [address] [place] [address] Francesco Rosario NP [address] [place] [address] 08/09/2026 1:30 PM CDT Office Visit [facility] Vascular Surgery [place] [address] [place] [address] Francesco Rosario NP [address] [place] [address] documented as of this encounter Visit Diagnoses Not on filedocumented in this encounter Additional Health Concerns Infection Onset Date Last Indicated Resolved Time R/O Respiratory 03/30/2024 03/30/2024 03/30/2024 7 :34 PM CDT documented as of this encounter Care Teams Casino Attendant Relationship Specialty Start Date End Date Umm Hyatt MD [address] [place] [phone] PCP - General Family Practice 06/19/23 03/29/24 documented as of this encounter
--- OUTSIDE RECORDS SUMMARY | 2025-08-25 11:56 | XMS_ITS | Encounter Summary ---
Author Organization [facility] Address 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 Gender Identity Male 07/23/2023 2:26 PM CDT Sexual Orientation Straight 07/23/2023 2: 26 PM CDT documented as of this encounter Plan of Treatment Upcoming Encounters Date Type Department Care Team (Late st Contact Info) Description 08/09/2026 12:00 PM CDT Ancillary Procedure [facility] Vascular Lab and Vein Center- [place] [address] [address] Francesco Rosario NP [address] [place] [address] 08/09/2026 1:30 PM CDT Office Visit [facility] Vascular Surgery [place] [address] [address] Francesco Rosario, JAZMIN [address] [place] [address] documented as of this encounter Procedures Procedure Name Priority Date/Time Associated Diagnosis Comments TROPONIN (W/REFLEX CKMB/CK) Routine 07/05/2005 5:10 AM CDT CBC WITH DIFFERENTIAL Routine 07/05/2005 5:10 AM CDT CBC WITH DIFFERENTIAL Routine 07/05/2005 5:10 AM CDT HEPATIC FUNCTION PANEL Routine 07/05/2005 5:10 AM CDT BASIC METABOLIC PANEL Routine 07/05/2005 5:10 AM CDT documented in this encounter Results * BASIC METABOLIC PANEL (07/05/2005 5:10 AM CDT) GLUCOSE 103 65 - 109 mg/dL INTERFACE SYSTEM CREATININE 0.9 0.5 - 1.3 mg/dL INTERFACE SYSTEM CALCIUM 8.7 8.6 - 10.2 mg/dL INTERFACE SYSTEM BUN 12 6 - 20 mg/dL INTERFACE SYSTEM SODIUM 140 135 - 145 mmol/L INTERFACE SYSTEM POTASSIUM 4.0 3.5 - 4.9 mmol/L INTERFACE SYSTEM CHLORIDE 107 96 - 108 mmol/L INTERFACE SYSTEM CO2 23 22 - 30 mmol/L INTERFACE SYSTEM 07/05/2005 5:10 AM CDT us Mike Cee MD CHEMISTRY ORDERABLES Final Res ult INTERFACE SYSTEM Refer to clinic/hospital department * TROPONIN (W/REFLEX CKMB/CK) (07/05/2005 5:10 AM CDT) TROPONIN T <0.01 <=0.02 ng/mL INTERFACE SYSTEM TROPONIN T INTERP Negative INTERFACE SYSTEM 07/05/2005 5:10 AM CDT Mike Cee MD CHEMISTRY ORDERABLES Final Res ult Performing Organization Address City/[facility] Co de Phone Number INTERFACE SYSTEM Refer to clinic/hospital department * (ABNORMAL) CBC WITH DIFFERENTIAL (07/05/2005 5:10 AM CDT) NEUTROPHILS 71(H) 45 - 70 % INTERFAC E SYSTEM LYMPHOCYTES 20 16 - 45 % INTERFAC E SYSTEM MONOCYTES 8 3 - 13 % INTERFACE SYSTEM EOSINOPHILS 2 0 - 7 % INTERFAC E SYSTEM BASOPHILS 0 0 - 2 % INTERFACE SYSTEM NEUTROPHIL ABSOLUTE 8.17(H) 1.90 - 7.00 K/uL INTERFACE SYSTEM LYMPHOCYTE ABSOLUTE 2.27 0.70 - 4.50 K/uL INTERFACE SYSTEM MONOCYTE ABSOLUTE 0.90 0.10 - 1.30 K/uL INTERFACE SYSTEM EOSINOPHIL ABSOLUTE 0.22 0.00 - 0.70 K/uL INTERFACE SYSTEM BASOPHILS ABSOLUTE 0.02 0.00 - 0.20 K/uL INTERFACE SYSTEM 07/05/2005 5:10 AM CDT Mike Cee MD HEMATOLOGY ORDERABLES Final Re sult Performing Organization Address [facility] de Phone Number INTERFACE SYSTEM Refer to clinic/hospital department * (ABNORMAL) CBC WITH DIFFERENTIAL (07/05/2005 5:10 AM CDT) WBC 11.6(H) 4.0 - 9.8 K/uL INTERFACE SYSTEM RBC 4.33(L) 4.50 - 5.40 M/uL INTERFACE SYSTEM HEMOGLOBIN 14.2 13.6 - 16.5 g/dL INTERFACE SYSTEM HEMATOCRIT 42.2 40.0 - 48.0 % INTERFACE SYSTEM MCV 97.5 82.0 - 99.0 fL INTERFACE SYSTEM MCH 32.8(H) 27.2 - 32.6 pg INTERFACE SYSTEM MCHC 33.6 31.5 - 35.5 % INTERFACE SYSTEM RDW 13.1 11.5 - 14.5 % INTERFACE SYSTEM RDW-STDEV 46.8 37.1 - 48.7 fL INTERFACE SYSTEM PLATELETS 252 140 - 350 K/uL INTERFACE SYSTEM MPV 9.2(L) 9.3 - 12.4 fL INTERFACE SYSTEM 07/05/2005 5:10 AM CDT us Mike Cee MD HEMATOLOGY ORDERABLES Final Re sult Performing Organization Address [facility] Phone Number INTERFACE SYSTEM Refer to clinic/hospital department * HEPATIC FUNCTION PANEL (07/05/2005 5:10 AM CDT) AST 21 12 - 38 U/L INTERFACE SYSTEM ALKALINE PHOSPHATASE 84 40 - 129 U/L INTERFACE SYSTEM BILIRUBIN TOTAL 0.2 0.2 - 1.0 mg/dL INTERFACE SYSTEM ALBUMIN 3.7 3.4 - 4.8 g/dL INTERFACE SYSTEM TOTAL PROTEIN 6.3 6.0 - 8.3 g/dL INTERFACE SYSTEM ALT 18 0 - 41 U/L INTERFACE SYSTEM BILIRUBIN DIRECT <0.1 0.0 - 0.3 mg/dL INTERFACE SYSTEM 07/05/2005 5:10 AM CDT us Mike Cee MD CHEMISTRY ORDERABLES Final Res ult Performing Organization Address [facility] Phone Number INTERFACE SYSTEM Refer to clinic/hospital department documented in this encounter Visit Diagnoses Diagnosis Dizziness and giddiness- Primary documented in this encounter Additional Health Concerns Infection Onset Date Last Indicated Resolved Time R/O Respiratory 03/30/2024 03/30/2024 03/30/2024 7 :34 PM CDT documented as of this encounter Care Teams Frame Builder Relationship Specialty Start Date End Date Umm Hyatt MD [address] [place] [phone] PCP - General Family Practice 06/19/23 03/29/24 documented as of this encounter
--- OUTSIDE RECORDS SUMMARY | 2025-08-25 11:56 | XMS_ITS | Encounter Summary ---
Author Organization [facility] Address [address] [place] [address] Care Team Providers Care Registered Dental Assistant Name Role Phone Umm Hyatt MD Primary Care Provider [phone] Encounter Details Date Type Department Care Team (Late st Contact Info) Description 09/07/2002 Outpatient Historical [facility] Family Medicine [place] [address] [facility] [address] [place] [address] Juve Davis MD [address] [place] [address] Social History Tobacco Use Types Packs/Day Years Used Date Smoking Tobacco: Never Assessed Sex and Gender Information Value Date Recorded Sex Assigned at Male 07/23/2023 2:26 PM CDT 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 Gender Identity Male 07/23/2023 2:26 PM CDT Sexual Orientation Straight 07/23/2023 2: 26 PM CDT documented as of this encounter Plan of Treatment Upcoming Encounters Date Type Department Care Team (Late st Contact Info) Description 08/09/2026 12:00 PM CDT Ancillary Procedure [facility] Vascular Lab and Vein Center- [place] [address] [place] [address] Francesco Rosario NP [address] [place] [address] 08/09/2026 1:30 PM CDT Office Visit [facility] Vascular Surgery [place] [address] [place] [address] Francesco Rosairo NP [address] [place] [address] documented as of this encounter Visit Diagnoses Not on filedocumented in this encounter Additional Health Concerns Infection Onset Date Last Indicated Resolved Time R/O Respiratory 03/30/2024 03/30/2024 03/30/2024 7 :34 PM CDT documented as of this encounter Care Teams Registered Dental Assistant Relationship Specialty Start Date End Date Umm Hyatt MD [address] [place] [phone] PCP - General Family Practice 06/19/23 03/29/24 documented as of this encounter
--- OUTSIDE RECORDS SUMMARY | 2025-08-25 11:56 | XMS_ITS | Encounter Summary ---
Author Organization [facility] Address 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 Gender Identity Male 07/23/2023 2:26 PM CDT Sexual Orientation Straight 07/23/2023 2: 26 PM CDT documented as of this encounter Plan of Treatment Upcoming Encounters Date Type Department Care Team (Late st Contact Info) Description 08/09/2026 12:00 PM CDT Ancillary Procedure [facility] [place] [address] [place] [address] Francesco Rosario NP [address] [place] [address] 08/09/2026 1:30 PM CDT Office Visit [facility] Vascular Surgery [place] [address] [place] [address] Francesco Rosario NP [address] [place] [address] documented as of this encounter Visit Diagnoses Not on filedocumented in this encounter Additional Health Concerns Infection Onset Date Last Indicated Resolved Time R/O Respiratory 03/30/2024 03/30/2024 03/30/2024 7 :34 PM CDT documented as of this encounter Care Teams Safety Lamp Keeper Relationship Specialty Start Date End Date Umm Hyatt MD [address] [place] [phone] PCP - General Family Practice 06/19/23 03/29/24 documented as of this encounter
--- OUTSIDE RECORDS SUMMARY | 2025-08-25 11:56 | XMS_ITS | Encounter Summary ---
Author Organization [facility] Address [address] [place] [address] Care Team Providers Care Platform Software Engineer Name Role Phone Umm Hyatt MD Primary Care Provider [phone] Encounter Details Date Type Department Care Team (Late st Contact Info) Description 01/20/[address] 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 Vascular Lab and Vein Center- [place] [address] [place] [address] Francesco Rosario NP [address] [place] [address] 08/09/2026 1:30 PM CDT Office Visit [facility] Vascular Surgery [place] [address] [place] [address] Francesco Rosario NP [address] [place] [address] documented as of this encounter Visit Diagnoses Not on filedocumented in this encounter Additional Health Concerns Infection Onset Date Last Indicated Resolved Time R/O Respiratory 03/30/2024 03/30/2024 03/30/2024 7 :34 PM CDT documented as of this encounter Care Teams Platform Software Engineer Relationship Specialty Start Date End Date Umm Hyatt MD [address] [place] [phone] PCP - General Family Practice 06/19/23 03/29/24 documented as of this encounter
--- OUTSIDE RECORDS SUMMARY | 2025-08-25 11:56 | XMS_ITS | Encounter Summary ---
Author Organization [facility] Address [address] [place] [address] Care Team Providers Care Mast Maker Name Role Phone Umm Hyatt MD Primary Care Provider [phone] Encounter Details Date Type Department Care Team (Late st Contact Info) Description 10/13/2001 Outpatient Historical [facility] Family Medicine [place] [address] [facility] [address] [place] [address] Juve Davis MD [address] [place] [address] Social History Tobacco Use Types Packs/Day Years Used Date Smoking Tobacco: Never Assessed Sex and Gender Information Value Date Recorded Sex Assigned at Male 07/23/2023 2:26 PM CDT 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 Gender Identity Male 07/23/2023 2:26 PM CDT Sexual Orientation Straight 07/23/2023 2: 26 PM CDT documented as of this encounter Plan of Treatment Upcoming Encounters Date Type Department Care Team (Late st Contact Info) Description 08/09/2026 12:00 PM CDT Ancillary Procedure [facility] Vascular Lab and Vein Center- [place] [address] [place] [address] Francesco Rosario NP [address] [place] [address] 08/09/2026 1:30 PM CDT Office Visit [facility] Vascular Surgery [place] [address] [place] [address] Francesco Rosario NP [address] [place] [address] documented as of this encounter Visit Diagnoses Not on filedocumented in this encounter Additional Health Concerns Infection Onset Date Last Indicated Resolved Time R/O Respiratory 03/30/2024 03/30/2024 03/30/2024 7 :34 PM CDT documented as of this encounter Care Teams Mast Maker Relationship Specialty Start Date End Date Umm Hyatt MD [address] [place] [phone] PCP - General Family Practice 06/19/23 03/29/24 documented as of this encounter
--- OUTSIDE RECORDS SUMMARY | 2025-08-25 11:56 | XMS_ITS | Encounter Summary ---
Author Organization [facility] Address 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 Gender Identity Male 07/23/2023 2:26 PM CDT Sexual Orientation Straight 07/23/2023 2: 26 PM CDT documented as of this encounter Plan of Treatment Upcoming Encounters Date Type Department Care Team (Late st Contact Info) Description 08/09/2026 12:00 PM CDT Ancillary Procedure [facility] Vascular Lab and Vein Center- [address] [place] [address] Francesco Rosario NP [address] [place] [address] 08/09/2026 1:30 PM CDT Office Visit [facility] Vascular Surgery [place] [address] [place] [address] Francesco Rosario NP [address] [place] [address] documented as of this encounter Visit Diagnoses Diagnosis Acute bronchitis- Primary documented in this encounter Additional Health Concerns Infection Onset Date Last Indicated Resolved Time R/O Respiratory 03/30/2024 03/30/2024 03/30/2024 7 :34 PM CDT documented as of this encounter Care Teams Wet Cleaner Machine Relationship Specialty Start Date End Date Umm Hyatt MD [address] [place] [phone] PCP - General Family Practice 06/19/23 03/29/24 documented as of this encounter
--- OUTSIDE RECORDS SUMMARY | 2025-08-25 11:56 | XMS_ITS | Encounter Summary ---
Author Organization [facility] Address [address] [place] [address] Care Team Providers Care Brush Worker Name Role Phone Umm Hyatt MD Primary Care Provider Encounter Details Date Type Department Care Team (Late st Contact Info) Description 07/09/2002 Outpatient Historical [facility] Family Medicine [place] [address] 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 Gender Identity Male 07/23/2023 2:26 PM CDT Sexual Orientation Straight 07/23/2023 2: 26 PM CDT documented as of this encounter Plan of Treatment Upcoming Encounters Date Type Department Care Team (Late st Contact Info) Description 08/09/2026 12:00 PM CDT Ancillary Procedure [facility] Vascular Lab and Vein Center- [place] [place] [address] Francesco Rosario NP [address] [place] [address] 08/09/2026 1:30 PM CDT Office Visit [facility] Vascular Surgery [place] [address] [place] [address] Francesco Rosario NP [address] [place] [address] documented as of this encounter Visit Diagnoses Not on filedocumented in this encounter Additional Health Concerns Infection Onset Date Last Indicated Resolved Time R/O Respiratory 03/30/2024 03/30/2024 03/30/2024 7 :34 PM CDT documented as of this encounter Care Teams Brush Worker Relationship Specialty Start Date End Date Umm Hyatt MD [address] [place] [phone] PCP - General Family Practice 06/19/23 03/29/24 documented as of this encounter
--- OUTSIDE RECORDS SUMMARY | 2025-08-25 11:56 | XMS_ITS | Encounter Summary ---
Author Organization [facility] Address [address] [place] [address] Care Team Providers Care Assistant Merchandiser Name Role Phone Umm Hyatt MD Primary Care Provider Encounter Details Date Type Department Care Team (Late st Contact Info) Description 05/12/2002 Outpatient Historical [facility] Family Medicine [place] [address] 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 Gender Identity Male 07/23/2023 2:26 PM CDT Sexual Orientation Straight 07/23/2023 2: 26 PM CDT documented as of this encounter Plan of Treatment Upcoming Encounters Date Type Department Care Team (Late st Contact Info) Description 08/09/2026 12:00 PM CDT Ancillary Procedure [facility] Vascular Lab and Vein Center- [place] [place] [address] Francesco Rosario NP [address] [place] [address] 08/09/2026 1:30 PM CDT Office Visit [facility] Vascular Surgery [place] [address] [place] [address] Francesco Rosario NP [address] [place] [address] documented as of this encounter Visit Diagnoses Not on filedocumented in this encounter Additional Health Concerns Infection Onset Date Last Indicated Resolved Time R/O Respiratory 03/30/2024 03/30/2024 03/30/2024 7 :34 PM CDT documented as of this encounter Care Teams Assistant Merchandiser Relationship Specialty Start Date End Date Umm Hyatt MD [address] [place] [phone] PCP - General Family Practice 06/19/23 03/29/24 documented as of this encounter
--- OUTSIDE RECORDS SUMMARY | 2025-08-25 11:56 | XMS_ITS | Encounter Summary ---
Author Organization [facility] Address [address] [place] [address] Care Team Providers Care Concrete Puddler Name Role Phone Umm Hyatt MD Primary Care Provider Encounter Details Date Type Department Care Team (Late st Contact Info) Description 06/09/2002 Outpatient Historical [facility] Family Medicine [place] [address] [facility] [address] [place] [address] Juve Davis MD [address] [place] [address] Social History Tobacco Use Types Packs/Day Years Used Date Smoking Tobacco: Never Assessed Sex and Gender Information Value Date Recorded Sex Assigned at Male 07/23/2023 2:26 PM CDT 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 Gender Identity Male 07/23/2023 2:26 PM CDT Sexual Orientation Straight 07/23/2023 2: 26 PM CDT documented as of this encounter Plan of Treatment Upcoming Encounters Date Type Department Care Team (Late st Contact Info) Description 08/09/2026 12:00 PM CDT Ancillary Procedure [facility] Vascular Lab and Vein Center- [address] [place] [address] Francesco Rosario NP [address] [place] [address] 08/09/2026 1:30 PM CDT Office Visit [facility] Vascular Surgery [place] [address] [place] [address] Francesco Rosario NP [address] [place] [address] documented as of this encounter Visit Diagnoses Not on filedocumented in this encounter Additional Health Concerns Infection Onset Date Last Indicated Resolved Time R/O Respiratory 03/30/2024 03/30/2024 03/30/2024 7 :34 PM CDT documented as of this encounter Care Teams Concrete Puddler Relationship Specialty Start Date End Date Umm Hyatt MD [address] [place] [phone] PCP - General Family Practice 06/19/23 03/29/24 documented as of this encounter
--- OUTSIDE RECORDS SUMMARY | 2025-08-25 11:56 | XMS_ITS | Encounter Summary ---
Author Organization [facility] Address [address] [place] [address] Care Team Providers Care Treatment Plant Operator Name Role Phone Umm Hyatt MD Primary Care Provider Encounter Details Date Type Department Care Team (Late st Contact Info) Description 08/04/2002 Outpatient Historical [facility] Family Medicine [place] [address] [facility] [address] [place] [address] Juve Davis MD [address] [place] [address] Social History Tobacco Use Types Packs/Day Years Used Date Smoking Tobacco: Never Assessed Sex and Gender Information Value Date Recorded Sex Assigned at Male 07/23/2023 2:26 PM CDT 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 Gender Identity Male 07/23/2023 2:26 PM CDT Sexual Orientation Straight 07/23/2023 2: 26 PM CDT documented as of this encounter Plan of Treatment Upcoming Encounters Date Type Department Care Team (Late st Contact Info) Description 08/09/2026 12:00 PM CDT Ancillary Procedure [facility] Vascular Lab and Vein Center- [place] [address] [place] [address] Francesco Rosario NP [address] [place] [address] 08/09/2026 1:30 PM CDT Office Visit [facility] Vascular Surgery [place] [address] [place] [address] Francesco Rosario NP [address] [place] [address] documented as of this encounter Visit Diagnoses Not on filedocumented in this encounter Additional Health Concerns Infection Onset Date Last Indicated Resolved Time R/O Respiratory 03/30/2024 03/30/2024 03/30/2024 7 :34 PM CDT documented as of this encounter Care Teams Treatment Plant Operator Relationship Specialty Start Date End Date Umm Hyatt MD [address] [place] [phone] PCP - General Family Practice 06/19/23 03/29/24 documented as of this encounter
--- OUTSIDE RECORDS SUMMARY | 2025-08-25 11:56 | XMS_ITS | Encounter Summary ---
Author Organization [facility] Address [address] [place] [address] Care Team Providers Care Hogshead Press Operator Name Role Phone Umm Hyatt MD Primary Care Provider Encounter Details Date Type Department Care Team (Late st Contact Info) Description 02/21/2003 Outpatient Historical [facility] Family Medicine [place] [address] 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 Gender Identity Male 07/23/2023 2:26 PM CDT Sexual Orientation Straight 07/23/2023 2: 26 PM CDT documented as of this encounter Plan of Treatment Upcoming Encounters Date Type Department Care Team (Late st Contact Info) Description 08/09/2026 12:00 PM CDT Ancillary Procedure [facility] Vascular Lab and Vein Center- [place] [address] [place] [address] Francesco Rosario NP [address] [place] [address] 08/09/2026 1:30 PM CDT Office Visit [facility] Vascular Surgery [place] [address] [place] [address] Francesco Rosario NP [address] [place] [address] documented as of this encounter Visit Diagnoses Not on filedocumented in this encounter Additional Health Concerns Infection Onset Date Last Indicated Resolved Time R/O Respiratory 03/30/2024 03/30/2024 03/30/2024 7 :34 PM CDT documented as of this encounter Care Teams Hogshead Press Operator Relationship Specialty Start Date End Date Umm Hyatt MD [address] [place] [phone] PCP - General Family Practice 06/19/23 03/29/24 documented as of this encounter
--- OUTSIDE RECORDS SUMMARY | 2025-08-25 11:56 | XMS_ITS | Encounter Summary ---
Author Organization [facility] Address 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 Gender Identity Male 07/23/2023 2:26 PM CDT Sexual Orientation Straight 07/23/2023 2: 26 PM CDT documented as of this encounter Plan of Treatment Upcoming Encounters Date Type Department Care Team (Late st Contact Info) Description 08/09/2026 12:00 PM CDT Ancillary Procedure [facility] Vascular Lab and Vein Center- [place] [address] [place] [address] Francesco Rosario NP [address] [place] [address] 08/09/2026 1:30 PM CDT Office Visit [facility] Vascular Surgery [place] [address] [place] [address] Francesco Rosario NP [address] [place] [phone] documented as of this encounter Visit Diagnoses Diagnosis Major depressive disorder, recurrent episode, unspecified- Primary documented in this encounter Additional Health Concerns Infection Onset Date Last Indicated Resolved Time R/O Respiratory 03/30/2024 03/30/2024 03/30/2024 7 :34 PM CDT documented as of this encounter Care Teams Quality Assurance Director Relationship Specialty Start Date End Date Umm Hyatt MD [address] [place] [address] PCP - General Family Practice 06/19/23 03/29/24 documented as of this encounter
--- OUTSIDE RECORDS SUMMARY | 2025-08-25 11:56 | XMS_ITS | Encounter Summary ---
Author Organization [facility] Address [address] [place] [address] Care Team Providers Care Sealer Dry Cell Name Role Phone Umm Hyatt MD Primary Care Provider Encounter Details Date Type Department Care Team (Latest Contact Info) Description 09/09/2000 Outpatient Historical [facility] Harsha Yang MD [address] [place] [address] Displacement of lumbar intervertebral disc without myelopathy (Primary Dx) Social History Tobacco Use Types Packs/Day Years Used Date Smoking Tobacco: Never Assessed Sex and Gender Information Value Date Recorded Sex Assigned at Male 07/23/2023 2:26 PM CDT 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 Vascular Lab and Vein Center- [place] [address] [place] [address] Francesco Rosario NP [address] [place] [address] 08/09/2026 1:30 PM CDT Office Visit [facility] Vascular Surgery [employer] [address] [place] [address] Francesco Rosario NP [address] [place] [address] documented as of this encounter Visit Diagnoses Diagnosis Displacement of lumbar intervertebral disc without myelopathy- Primary documented in this encounter Additional Health Concerns Infection Onset Date Last Indicated Resolved Time R/O Respiratory 03/30/2024 03/30/2024 03/30/2024 7 :34 PM CDT documented as of this encounter Care Teams Sealer Dry Cell Relationship Specialty Start Date End Date Umm Hyatt MD [address] [place] [phone] PCP - General Family Practice 06/19/23 03/29/24 documented as of this encounter
--- OUTSIDE RECORDS SUMMARY | 2025-08-25 11:56 | XMS_ITS | Encounter Summary ---
Author Organization [facility] Address 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 Gender Identity Male 07/23/2023 2:26 PM CDT Sexual Orientation Straight 07/23/2023 2: 26 PM CDT documented as of this encounter Plan of Treatment Upcoming Encounters Date Type Department Care Team (Late st Contact Info) Description 08/09/2026 12:00 PM CDT Ancillary Procedure [facility] Vascular Lab and Vein Center- [place] [address] [place] [address] Francesco Rosario NP [address] [place] [address] 08/09/2026 1:30 PM CDT Office Visit [facility] Vascular Surgery [place] [address] [place] [address] Francesco Rosario NP [address] [place] [address] documented as of this encounter Visit Diagnoses Not on filedocumented in this encounter Additional Health Concerns Infection Onset Date Last Indicated Resolved Time R/O Respiratory 03/30/2024 03/30/2024 03/30/2024 7 :34 PM CDT documented as of this encounter Care Teams Office Mail Clerk Relationship Specialty Start Date End Date Umm Hyatt MD [address] [place] [phone] PCP - General Family Practice 06/19/23 03/29/24 documented as of this encounter
--- OUTSIDE RECORDS SUMMARY | 2025-08-25 11:56 | XMS_ITS | Encounter Summary ---
Author Organization [facility] Address 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 Gender Identity Male 07/23/2023 2:26 PM CDT Sexual Orientation Straight 07/23/2023 2: 26 PM CDT documented as of this encounter Plan of Treatment Upcoming Encounters Date Type Department Care Team (Late st Contact Info) Description 08/09/2026 12:00 PM CDT Ancillary Procedure [facility] Vascular Lab and Vein Center- [place] [address] [place] [address] Francesco Rosario NP [address] [place] [address] 08/09/2026 1:30 PM CDT Office Visit [facility] Vascular Surgery [place] [address] [place] [address] Francesco Rosario NP [address] [place] [address] documented as of this encounter Visit Diagnoses Diagnosis Major depressive disorder, recurrent episode, unspecified- Primary documented in this encounter Additional Health Concerns Infection Onset Date Last Indicated Resolved Time R/O Respiratory 03/30/2024 03/30/2024 03/30/2024 7 :34 PM CDT documented as of this encounter Care Teams Nursing Professor Relationship Specialty Start Date End Date Umm Hyatt MD [address] [place] [address] PCP - General Family Practice 06/19/23 03/29/24 documented as of this encounter
--- OUTSIDE RECORDS SUMMARY | 2025-08-25 11:56 | XMS_ITS | Encounter Summary ---
Author Organization [facility] Address 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 Gender Identity Male 07/23/2023 2:26 PM CDT Sexual Orientation Straight 07/23/2023 2: 26 PM CDT documented as of this encounter Plan of Treatment Upcoming Encounters Date Type Department Care Team (Late st Contact Info) Description 08/09/2026 12:00 PM CDT Ancillary Procedure [facility] Vascular Lab and Vein Center- [place] [address] [place] [address] Francesco Rosario NP [address] [place] [address] 08/09/2026 1:30 PM CDT Office Visit [facility] Vascular Surgery [place] [address] [place] [address] Francesco Rosario, JAZ[place] [address] [place] [address] documented as of this encounter Visit Diagnoses Diagnosis Lumbago- Primary documented in this encounter Additional Health Concerns Infection Onset Date Last Indicated Resolved Time R/O Respiratory 03/30/2024 03/30/2024 03/30/2024 7 :34 PM CDT documented as of this encounter Care Teams Platform Builder Relationship Specialty Start Date End Date Umm Hyatt MD [address] [place] [phone] PCP - General Family Practice 06/19/23 03/29/24 documented as of this encounter
--- OUTSIDE RECORDS SUMMARY | 2025-08-25 11:56 | XMS_ITS | Encounter Summary ---
Author Organization [facility] Address 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 Gender Identity Male 07/23/2023 2:26 PM CDT Sexual Orientation Straight 07/23/2023 2: 26 PM CDT documented as of this encounter Plan of Treatment Upcoming Encounters Date Type Department Care Team (Late st Contact Info) Description 08/09/2026 12:00 PM CDT Ancillary Procedure [facility] Vascular Lab and Vein Center- [place] [address] [place] [address] Francesco Rosario NP [address] [place] [address] 08/09/2026 1:30 PM CDT Office Visit [facility] Vascular Surgery [place] [address] [place] [address] Francesco Rosario NP [address] [place] [address] documented as of this encounter Visit Diagnoses Diagnosis Major depressive disorder, recurrent episode, unspecified- Primary documented in this encounter Additional Health Concerns Infection Onset Date Last Indicated Resolved Time R/O Respiratory 03/30/2024 03/30/2024 03/30/2024 7 :34 PM CDT documented as of this encounter Care Teams Commissary Agent Relationship Specialty Start Date End Date Umm Hyatt MD [address] [place] [address] PCP - General Family Practice 06/19/23 03/29/24 documented as of this encounter
--- OUTSIDE RECORDS SUMMARY | 2025-08-25 11:56 | XMS_ITS | Encounter Summary ---
Author Organization [facility] Address 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 Vascular Lab and Vein Center- [place] [address] [place] [address] Francesco Rosario NP [address] [place] [address] 08/09/2026 1:30 PM CDT Office Visit [facility] Vascular Surgery [place] [address] [address] Francesco Rosario NP [address] [place] [address] documented as of this encounter Visit Diagnoses Diagnosis Major depressive disorder, recurrent episode, unspecified- Primary documented in this encounter Additional Health Concerns Infection Onset Date Last Indicated Resolved Time R/O Respiratory 03/30/2024 03/30/2024 03/30/2024 7 :34 PM CDT documented as of this encounter Care Teams Communications Administrator Relationship Specialty Start Date End Date Umm Hyatt MD [address] [place] [address] PCP - General Family Practice 06/19/23 03/29/24 documented as of this encounter
--- OUTSIDE RECORDS SUMMARY | 2025-08-25 11:56 | XMS_ITS | Encounter Summary ---
Author Organization [facility] Address 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 Gender Identity Male 07/23/2023 2:26 PM CDT Sexual Orientation Straight 07/23/2023 2: 26 PM CDT documented as of this encounter Plan of Treatment Upcoming Encounters Date Type Department Care Team (Late st Contact Info) Description 08/09/2026 12:00 PM CDT Ancillary Procedure [facility] Vascular Lab and Vein Center- [place] [address] [place] [address] Francesco Rosario NP [address] [place] [address] 08/09/2026 1:30 PM CDT Office Visit [facility] Vascular Surgery [place] [address] [address] Francesco Rosario NP [address] [place] [address] documented as of this encounter Visit Diagnoses Diagnosis Major depressive disorder, recurrent episode, unspecified- Primary documented in this encounter Additional Health Concerns Infection Onset Date Last Indicated Resolved Time R/O Respiratory 03/30/2024 03/30/2024 03/30/2024 7 :34 PM CDT documented as of this encounter Care Teams Ecmo Specialist Relationship Specialty Start Date End Date Umm Hyatt MD [address] [place] [address] PCP - General Family Practice 06/19/23 03/29/24 documented as of this encounter
--- NOTE | 2025-08-25 12:01 | CTR_ITS ---
PROCEDURE INFORMATION: Exam: CT Head Without Contrast Exam date and time: 08/25/2025 1:35 PM Age: 74 years old Clinical indication: Injury or trauma; Fall; Blunt trauma (contusions or hematomas); Injury details: PT presents with seizure like activity; Prior surgery; Surgery date: 6+ months; Surgery type: Cspine fusion, cataract SX; Additional info: Fall near syncopal episode TECHNIQUE: Imaging protocol: Computed tomography of the head without contrast. Radiation optimization: All CT scans at this facility use at least one of these dose optimization techniques: automated exposure control; mA and/or kV adjustment per patient size (includes targeted exams where dose is matched to clinical indication); or iterative reconstruction. COMPARISON: Prior CT head exams in 2013 and 2008 are not emergently available for review.. RADIATION DOSE METRICS: Total DLP (mGy-cm): 1166.28 FINDINGS: Brain: No acute intracranial hemorrhage or abnormal intracranial mass effect is identified. There is mild generalized cerebral volume loss with associated accentuation of the ventricles and sulci. There is no midline shift. There are no subdural collections. Cerebral ventricles: See Brain finding. Paranasal sinuses: Mucous retention cyst noted in the right maxillary sinus; otherwise, imaged portions of the paranasal sinuses are well-aerated. Mastoid air cells: Visualized portions of mastoid sinuses are not opacified. Bones: No obvious fracture of the cranium. Soft tissues: No acute abnormality unless otherwise stated above. CT/CT head wo con* [id number] IMPRESSION: No acute intracranial hemorrhage or mass effect.
--- NOTE | 2025-08-25 12:01 | ECG_ITS ---
[facility] Date: 2025-08-25 Pat Name: Bienvenido Rees Department: Room: Gender: Male Chaplain: : 1950 Requested By: Sanya Marin Order Number: [id number] Clive MD: Vicki Nice M.D. Measurements Intervals [place] Rate: 90 P: 54 CA: 177 QRS: -45 QRSD: 97 T: 0 QT: 362 QTc: 443 Interpretive Statements SINUS RHYTHM PATTERN CONSISTENT WITH PULMONARY DISEASE LEFT ANTERIOR FASCICULAR BLOCK [QRS AXIS <= -45, QR IN I, RS IN II] MODERATE ST DEPRESSION [0.05+ mV ST DEPRESSION] Compared to ECG 07/22/2019 01:37:27 Left anterior fascicular block now present ST (T wave) deviation now present Left-axis deviation no longer present Electronically Signed On 08-25-2025 18:46:45 CDT by Vicki Nice M.D. [email or web address]
--- NOTE | 2025-08-25 12:02 | XRR_ITS ---
PROCEDURE INFORMATION: Exam: XR Chest Exam date and time: 08/25/2025 12:03 PM Age: 74 years old Clinical indication: Cough and dyspnea; Additional info: Dyspnea/cough TECHNIQUE: Imaging protocol: Radiologic exam of the chest. Views: 1 view. COMPARISON: CT angio abdomen pelvis [id number] 01/09/2023 7:34 AM FINDINGS: Lungs: No consolidation. Pleural spaces: No sizable pleural effusion or pneumothorax. Heart/Mediastinum: No cardiomegaly. Bones/joints: Unremarkable. XR/XR chest 1V portable [id number] IMPRESSION: No acute intrathoracic findings.
[2025-08-25 12:29] LABS: Hematocrit 42.9 % (37-53); Hemoglobin 13.30 g/dL (11.27-16.99); Mean Corpuscular HGB Conc 31.0 g/dL (30-55); Mean Corpuscular Hemoglobin 27.4 pg (27-33); Mean Corpuscular Volume 88.3 fl (82-101); Nucleated Red Blood Cells % 0 %; Platelet Count 189 10^3/cmm (157-399); Red Blood Count 4.86 10^6/uL (3.85-5.65); White Blood Count 8.71 10^3/uL (3.29-11.43)
--- NOTE | 2025-08-25 12:34 | W.ED.SEIZURE ---
HPI - Seizure General: Chief Complaint: Seizure Stated Complaint: seizures Time Seen by Provider: 08/25/25 11:44 History of Present Illness: HPI Narrative: 74-year-old male presents to the emergency room with complaints of what he describes as seizure-like activity. Patient has chronic headaches as well as atrial fibrillation. He has a history of previous CVA. He also has a history of a ascending aortic aneurysm. While he was standing he started having shaking episode he could not remember exactly what happened. He has had other episodes of chest pain intermittently in the last few days usually last for just a few minutes resolved spontaneously. He states most of the symptoms are due to exposure at his head or where he was in service. States he just generally feels off. He tells me he is about to go on hospice care he is hesitant to have any workup done today. Associated symptoms: Deny chest pain, chills or fever(s) Related Data Home Medications ?Medication ?Instructions ?Recorded ?Confirmed folic acid 1 mg tablet 1 mg PO DAILY 05/17/20 07/28/25 pantoprazole 40 mg tablet,delayed 40 mg PO DAILY 05/17/20 07/28/25 release tamsulosin 0.4 mg capsule 0.4 mg PO QPM 05/17/20 07/28/25 buspirone 15 mg tablet 15 mg PO BID 03/28/21 07/28/25 finasteride 5 mg tablet 5 mg PO DAILY 03/28/21 07/28/25 ketoconazole 2 % topical cream 1 applic topical DAILY 03/28/21 07/28/25 mirtazapine 15 mg tablet (Remeron) 15 mg PO BEDTIME 04/08/23 04/15/25 aspirin 81 mg tablet 81 mg PO DAILY 04/15/25 07/28/25 budesonide 160 mcg-glycopyr 9 2 inh inhalation BID 04/15/25 07/28/25 mcg-formot 4.8 mcg/actuation HFA inhaler (Breztri Aerosphere) bupropion HCl 150 mg 24 hr tablet, 150 mg PO QAM 04/15/25 07/28/25 extended release clopidogrel 75 mg tablet 75 mg PO DAILY 04/15/25 07/28/25 donepezil 10 mg tablet 5 mg PO DAILY 04/15/25 07/28/25 duloxetine 60 mg capsule,delayed 60 mg PO DAILY 04/15/25 07/28/25 release sprinkle fluticasone propionate 50 2 spray intranasal DAILY 04/15/25 07/28/25 mcg/actuation nasal spray,suspension propranolol 60 mg capsule,24 60 mg PO DAILY 04/15/25 07/28/25 hr,extended release rosuvastatin 40 mg tablet 40 mg PO QPM 04/15/25 07/28/25 oxygen-air delivery systems 07/28/25 07/28/25 Previous Rx's ?Medication ?Instructions ?Recorded rivaroxaban 20 mg tablet (Xarelto) 20 mg PO DAILY #90 tabs 12/23/24 nitroglycerin 0.4 mg sublingual 0.4 mg sublingual Q5M PRN chest 08/19/25 tablet pain #25 tabs Allergies Allergy/AdvReac Type Severity Reaction Status Date / Time No Known Allergies Allergy Verified 07/28/25 13:08 Review of Systems Const: Denies: fever(s) or chills Card: Denies: chest pain Resp: Denies: dyspnea GI: Denies: abdominal pain : Denies: dysuria, urinary frequency or urinary urgency Musc: Denies: neck pain or back pain Skin/Breast: Denies: rash PFSH ED PFSH: Medical History A-fib Ascending aortic aneurysm Abdominal aortic aneurysm (AAA) Hx of essential hypertension Hx of mixed hyperlipidemia History of CVA (cerebrovascular accident) History of ataxia History of posttraumatic stress disorder (PTSD) Hx of tinnitus Hearing impaired Surgical History History of lumbar fusion Hx of cholecystectomy Hx of fusion of cervical spine History of cataract extraction Hx of hand surgery Family History Other Adopted Social History Smoking and tobacco/nicotine status: former use of tobacco/nicotine Quit status (tobacco/nicotine): has quit using Year quit tobacco: 2014 Former quit date comment: 2 1/2 PACK PER DAY X 50 YEARS Alcohol intake: former Substance/Drug Use: current Lives independently: Yes Household members: spouse Marital status: Number of children: 7 service: Yes Pets and animals: Yes Pets & animals: dog(s) Physical Exam Const: GENERAL APPEARANCE: cooperative ORIENTATION/CONSCIOUSNESS: Yes awake, Yes oriented to person, Yes oriented to place and Yes oriented to time HENMT: COMMON NORMALS: normocephalic, atraumatic and hearing grossly normal bilaterally HEAD & SCALP: normocephalic and atraumatic Resp: COMMON NORMALS: normal respiratory effort, No retractions, No use of accessory muscles and clear to auscultation bilaterally AUSCULTATION: clear to auscultation bilaterally Cardio: COMMON NORMALS: regular rate and No murmurs present (Cardio) RATE: regular rate RHYTHM: abnormal rhythm irregularly irregular GI: COMMON NORMALS: Soft to palpation and No hepatosplenomegaly present AUSCULTATION: Yes normoactive bowel sounds PALPATION: Yes Soft to palpation, No Tenderness to palpation present (GI), No Guarding due to palpation present (GI) and Yes No hepatosplenomegaly present Extremity: COMMON NORMALS: normal to inspection, capillary refill normal, no clubbing, cyanosis or edema, no calf tenderness and no pedal edema Neuro: SENSORIUM/ORIENTATION: Yes oriented to person, Yes oriented to place and Yes oriented to time Skin: COMMON NORMALS: no rashes or lesions noted GENERAL SKIN EXAM: no rashes or lesions noted Course Vital Signs: Vital signs: Vital Signs Temperature 98.3 F 08/25/25 11:45 Pulse Rate 73 08/25/25 14:31 Respiratory Rate 16 08/25/25 11:45 Blood Pressure 139/70 08/25/25 14:31 Pulse Oximetry 98 08/25/25 14:31 Oxygen Delivery Me thod Nasal Cannula 08/25/25 14:31 Oxygen Flow Rate 2 08/25/25 14:31 MDM - Seizure MDM Narrative Medical decision making narrative: Patient seen evaluated emergency room after possible seizure. His laboratory tests are unremarkable and talking to them uncertain whether or not he actually had a seizure. He is considering going on to hospice patient. Has a history of previous abdominal aortic aneurysm is no chest or abdominal pain at this time he does have a cystitis and chronic kidney disease. No other significant findings discussed evaluation in the emergency room he really is not interested in pursuing anything further. Discharged home on oral antibiotics. Offered referral to neurology patient declines he says he will follow-up with his primary care doctor return if he has further episodes or any concerning symptoms. Lab Data 08/25/25 12:20 08/25/25 12:20 Labs: Radiology Impressions Head CT 08/25/25 12:01 IMPRESSION: No acute intracranial hemorrhage or mass effect. Chest X-Ray 08/25/25 12:02 IMPRESSION: No acute intrathoracic findings. Laboratory Results WBC 8.71 10^3/uL (3.29-11.43) 08/25/25 12:20 RBC 4.86 10^6/uL (3.85-5.65) 08/25/25 12:20 Hgb 13.30 g/dL (11.27-16.99) 08/25/25 12:20 Hct 42.9 % (37-53) 08/25/25 12:20 MCV 88.3 fl (82-101) 08/25/25 12:20 MCH 27.4 pg (27-33) 08/25/25 12:20 MCHC 31.0 g/dL (30-55) 08/25/25 12:20 RDW 16.1 % (12.1-15.1) H 08/25/25 12:20 Plt Count 189 10^3/cmm (157-399) 08/25/25 12:20 MPV 9.4 fL (7.4-10.4) 08/25/25 12:20 Neut % (Auto) 71.1 % 08/25/25 12:20 Lymph % (Auto) 15.3 % 08/25/25 12:20 [place] % (Auto) 10.7 % 08/25/25 12:20 Eos % (Auto) 2.2 % 08/25/25 12:20 Baso % (Auto) 0.5 % 08/25/25 12:20 Neut # (Auto) 6.20 10^3/uL (1.8-7.7) 08/25/25 12:20 Lymph # (Auto) 1.3 10^3/uL (0.8-4.8) 08/25/25 12:20 [place] # (Auto) 0.9 10^3/uL (0.2-0.9) 08/25/25 12:20 Eos # (Auto) 0.2 10^3/uL (0.0-0.8) 08/25/25 12:20 Baso # (Auto) 0.0 10^3/uL (0.0-0.1) 08/25/25 12:20 Nucleated RBC % (auto) 0 % 08/25/25 12:20 Nucleated RBCs # 0.0 /100WBC 08/25/25 12:20 Specimen Type Arterial 08/25/25 12:43 Sample Site Radial, left 08/25/25 12:43 ABG pH 7.47 (7.35-7.45) H 08/25/25 12:43 ABG pCO2 36.7 mmHg (35-45) 08/25/25 12:43 ABG pO2 78.3 mmHg (80.0-100.0) L 08/25/25 12:43 ABG PO2/FiO2 Ratio 279 08/25/25 12:43 ABG HCO3 26.5 mmol/L (22-26) H 08/25/25 12:43 ABG O2 Saturation 95.4 08/25/25 12:43 ABG Base Excess 2.9 mmol/L (-2.0-2.0) H 08/25/25 12:43 Alec Test Pos 08/25/25 12:43 A-a O2 Gradient 9.9 mmHg (5-10) 08/25/25 12:43 Hematocrit 42.0 % (42-52) 08/25/25 12:43 Hgb O2 Saturation 93.6 % (95-100) L 08/25/25 12:43 Carboxyhemoglobin 0.7 %THgb (0.4-20.1) 08/25/25 12:43 Methemoglobin 1.2 % (0.4-1.5) 08/25/25 12:43 Total Hemoglobin 13.7 g/dL (14-18) L 08/25/25 12:43 Sodium 137.0 mmol/L (131-143) 08/25/25 12:43 Potassium 3.8 mmol/L (3.5-5.0) 08/25/25 12:43 Glucose 122.0 mg/dL (70-115) H 08/25/25 12:43 Ionized Calcium 1.1 mmol/L (1.1-1.4) 08/25/25 12:43 O2 Delivery Device Nc 08/25/25 12:43 O2 Liters/Min 2.0 % 08/25/25 12:43 FiO2 28.0 % 08/25/25 12:43 Structural Iron Erector ID Cak 08/25/25 12:43 Sodium 137 mmol/L (136-145) 08/25/25 12:20 Potassium 3.7 mmol/L (3.5-5.1) 08/25/25 12:20 Chloride 99 mmol/L (98-107) 08/25/25 12:20 Carbon Dioxide 26 mmol/L (22-29) 08/25/25 12:20 Anion Gap 15.7 (5-19) 08/25/25 12:20 BUN 13 mg/dL (8-23) 08/25/25 12:20 Creatinine 1.5 mg/dL (0.7-1.2) H 08/25/25 12:20 GFR Calculation Not Reportable 08/25/25 12:20 Glucose 127 mg/dL (65-115) H 08/25/25 12:20 Calculated Osmolality 286 mOsm/kg (285-295) 08/25/25 12:20 Calcium 8.8 mg/dL (8.5-10.5) 08/25/25 12:20 Total Bilirubin 0.4 mg/dL (0.15-1.2) 08/25/25 12:20 AST 29 U/L (0-40) 08/25/25 12:20 ALT 24 U/L (0-41) 08/25/25 12:20 Alkaline Phosphatase 119 U/L (40-130) 08/25/25 12:20 Total Protein 6.5 g/dL (6.6-8.7) L 08/25/25 12:20 Albumin 3.5 g/dL (3.5-5.2) 08/25/25 12:20 Globulin 3.0 g/dL (1.3-4.6) 08/25/25 12:20 Urine Color Yellow (Yellow) 08/25/25 12: Urine Appearance Cloudy (CLEAR) A 08/25/25 12: Urine pH 6.0 (5-7) 08/25/25 12: Ur Specific [place] 1.017 (1.005-1.030) 08/25/25 12: Urine Protein 1+ (Negative) A 08/25/25 12: Urine Glucose (UA) Negative (Normal) 08/25/25 12:31 Urine Ketones Trace (Negative) 08/25/25 12: Urine Blood Negative (Negative) 08/25/25 12: Urine Nitrate Positive (Negative) A 08/25/25 12: Urine Bilirubin Negative (Negative) 08/25/25 12:31 Urine Urobilinogen 1.0 mg/dL (Negative) 08/25/25 12:31 Ur Leukocyte Esterase 2+ (Negative) A 08/25/25 12:31 Urine RBC 5-10 /hpf (0-2) H 08/25/25 12:31 Urine WBC 51-100 /hpf (0-5) H 08/25/25 12:31 Ur Squamous Epith Cells 5-10 /hpf (0-5) H 08/25/25 12:31 Amorphous Sediment Not Reportable 08/25/25 12:31 Urine Bacteria 4+ /hpf (NONE) H 08/25/25 12:31 Urine Mucus 1+ /hpf 08/25/25 12:31 All radiology interpretation(s) finalized by discharge EKG Data EKG 1: Attestation: I personally reviewed and interpreted this EKG as follows: EKG interpretation date: 08/25/25 Prior EKG tracings: not available for review (No previous EKGs) Interpretation: EKG 08/25/2025 1227 sinus rhythm rate rate of 90. Normal 177 QTc 443. Left anterior fascicular block nonspecific ST changes no acute changes. Discharge Plan Discharge Patient Disposition: Home Clinical Impression: Cystitis Condition: Stable Prescriptions: No Action folic acid 1 mg tablet 1 mg PO DAILY pantoprazole 40 mg tablet,delayed release (DR/EC) 40 mg PO DAILY tamsulosin 0.4 mg capsule 0.4 mg PO QPM buspirone 15 mg tablet 15 mg PO BID ketoconazole 2 % cream 1 applic topical DAILY finasteride 5 mg tablet 5 mg PO DAILY mirtazapine [Remeron] 15 mg tablet 15 mg PO BEDTIME Xarelto 20 mg tablet 20 mg PO DAILY Qty: 90 3RF Rx Instructions: must administer with evening meal (DME) oxygen-air delivery systems Device See Rx Instructions .ROUTE Rx Instructions: As directed nitroglycerin 0.4 mg tablet, sublingual 0.4 mg sublingual Q5M PRN (Reason: chest pain) Qty: 25 2RF Rx Instructions: do not exceed 3 doses per episode donepezil 10 mg Tablet 5 mg PO DAILY propranolol 60 mg Capsule,Extended Release 24 Hr 60 mg PO DAILY clopidogrel 75 mg tablet 75 mg PO DAILY aspirin [Low-Dose Aspirin] 81 mg Tablet 81 mg PO DAILY fluticasone propionate [Flonase] 50 mcg/actuation [place],Suspension 2 spray INTRANASAL DAILY Rx Instructions: administer into each nostril rosuvastatin 40 mg Tablet 40 mg PO QPM bupropion HCl 150 mg Tablet Extended Release 24 Hr 150 mg PO QAM duloxetine 60 mg Capsule, Delayed Rel Sprinkle 60 mg PO DAILY Breztri Aerosphere 160-9-4.8 mcg/actuation Hfa Aerosol Inhaler 2 inh INHALATION BID Discharge Orders: Discharge ED (Routine); Ordered 08/25/25 Ordered By: Sanya Donaldson Referrals: Umm Hyatt MD [Primary Care Provider, Family Practice] Discharge Diet: Usual diet Discharge Activity: Resume usual activity Patient Instructions: Opioid Safety, Pain Management, Patient Portal & Joe Instructions Activity Restrictions/Additional Instructions: Thank you for choosing [facility] for your healthcare needs today. It is very important that you follow up as instructed or that you return to the Emergency Department should you have concerns or if your condition changes or worsens in any way. Emergency department visits are focused on emergent conditions, in some cases you may require further evaluation on an outpatient basis. You are seen in the emergency room with complaints of an episode you were concerned was a seizure. CT of your head was negative. Urine showed signs of an infection. The other labs were unremarkable. You were given a dose of antibiotics in the emergency room and discharged home with antibiotics. We have discussed referral to neurology you opted to follow-up with your primary care doctor and allow them to make a referral if appropriate. (Please note that included in your discharge packet is information concerning opioid safety and pain management. This information is given to all patients were discharged from the ER regardless of their discharge diagnosis or the medicines they usually take or are prescribed.) Print Language: Lao Coding Level of Care Code ED [employer] Manager for Yogesh Anand
[2025-08-25 12:38] LABS: Glucose Urine UA Negative (Normal); Nitrate Urine Positive (Negative); Specific Gravity, Urine 1.017 (1.005-1.030)
[2025-08-25 12:45] LABS: Alanine Aminotransferase 24 U/L (0-41); Albumin Level 3.5 g/dL (3.5-5.2); Alkaline Phosphatase 119 U/L (40-130); Anion Gap 15.7 (5-19); Aspartate Amino Transferase 29 U/L (0-40); Blood Urea Nitrogen 13 mg/dL (8-23); Calcium 8.8 mg/dL (8.5-10.5); Carbon Dioxide 26 mmol/L (22-29); Chloride 99 mmol/L (98-107); Creatinine Clr Calc Pharmacy 48.6770; Globulin 3.0 g/dL (1.3-4.6); Glucose 127 mg/dL (65-115); Osmolality Calculated 286 mOsm/kg (285-295); Potassium 3.7 mmol/L (3.5-5.1); Sodium 137 mmol/L (136-145); Total Protein 6.5 g/dL (6.6-8.7)
[2025-08-25 12:55] LABS: ABG PCO2 36.7 mmHg (35-45); ABG PH Result 7.47 (7.35-7.45); Alveolar-Arterial Oxygen Gradi 9.9 mmHg (5-10); Arterial Blood Gas Hematocrit 42.0 % (42-52); Blood Gas Allen Test Pos; Blood Gas LPM 2.0 %; Blood Gas Operator Identificat CAK; Blood Gas Sample Site Radial, left; Blood Gas Sample Type Arterial; Carboxyhemoglobin 0.7 %THgb (0.4-20.1); Glucose Level-ABG 122.0 mg/dL (70-115); HCO3 ABG 26.5 mmol/L (22-26); Ionized Calcium Level - ABG 1.1 mmol/L (1.1-1.4); Methemoglobin 1.2 % (0.4-1.5); Oxygen Saturation ABG 95.4; PO2 ABG 78.3 mmHg (80.0-100.0); PO2 FiO2 Ratio Arterial Blood 279; Potassium Level - ABG 3.8 mmol/L (3.5-5.0); Sodium Level - ABG 137.0 mmol/L (131-143)
[2025-08-25 13:12] LABS: Add Urine Microscopic? YES
[2025-08-25] MEDS: cefTRIAXone 1,000 mg SDV 1000 MG IVP (14:30)
[2025-08-25 14:31] VITALS: BP 139/70; PULSE 73; O2SAT 98
== END 2025-08-25 15:46 | disposition home or self-care (01) ==
PROVIDERS: Emergency Provider Family Medicine; PCP Family Medicine
DX: N30.90 Cystitis, unspecified without hematuria (principal); Z79.02 Long term (current) use of antithrombotics/antiplatelets; Z79.82 Long term (current) use of aspirin; Z87.891 Personal history of nicotine dependence; E78.2 Mixed hyperlipidemia; Z86.73 Personal history of transient ischemic attack (TIA), and cerebral infarction without residual deficits; I10 Essential (primary) hypertension
CPT/HCPCS: 36415; 36600; 70450; 71045; 80051; 80053; 81001; 82330; 82805; 85025; 87077; 87086; 87186; 93005; 96374; 99285; J0696